=== PATIENT | female | born 1985 | race African-American/Black ===

== ENCOUNTER 2019-03-14 12:50 | Emergency (ER) | payer OTHER ==
[2019-03-14 13:14] VITALS: BP 110/71
[2019-03-14] MEDS ORDERED: NORMAL SALINE 1000 ML 1,000 ML IV ONE (15:06)
[2019-03-14] MEDS ORDERED: KETOROLAC TROMETHAMINE INJ/PF 30 MG/1 ML SDV IV ONE (15:06)
[2019-03-14] MEDS ORDERED: ONDANSETRON HCL INJ/PF 4 MG/2 ML SDV IV ONE ×2 (15:06→19:36)
--- NOTE | 2019-03-14 15:10 | ER Document Report ---
ED Medical Screen (RME) - General Chief Complaint: Abdominal Pain Stated Complaint: ABDOMINAL PAIN,VOMITING Time Seen by Provider: 03/14/19 14:57 Primary Care Provider: SAMUEL DALAL MD [Primary Care Provider] - Follow up as needed Mode of Arrival: Ambulatory Information source: Patient TRAVEL OUTSIDE OF THE U.S. IN LAST 30 DAYS: No - HPI Patient complains to provider of: ABDO PAIN Notes: 03/14/19 15:07 Patient here with complaints of upper abdominal pain. The patient has a history of necrotizing pancreatitis. She is been seen and evaluated for this in [place]. She recently moved here to be closer to family. Started having some increasing pain this morning. With nausea. No vomiting or fever. Exam No distress, nontoxic-appearing. Lungs clear and equal throughout. Upper abdominal tenderness to palpation. Tachycardia Plan CBC, CMP, urine, urine , lipase, saline lock, CT abdomen pelvis with IV contrast. Dose of Toradol, normal saline bolus and Zofran. An initial examination was made on the patient as part of the triage process, and it was determined a more comprehensive evaluation was necessary. Initial labs were ordered and patient was transferred to another provider in the ED who assumed care and finished evaluation and plan. - Related Data Allergies/Adverse Reactions: ceftriaxone [From Rocephin] Allergy (Verified 03/14/19 12:53) Past Medical History Renal/ Medical History: Denies: Hx Peritoneal Dialysis Past Surgical History: Reports: Hx Orthopedic Surgery - low back, nose - Immunizations Hx Diphtheria, Pertussis, Tetanus Vaccination: Yes - 2005 Physical Exam - Vital signs Vitals: Temp Pulse Resp BP Pulse Ox 98.3 F 122 H 18 110/71 98 03/14/19 13:11 03/14/19 13:11 03/14/19 13:11 03/14/19 13:11 03/14/19 13:11 Course - Vital Signs Vital signs: Temp Pulse Resp BP Pulse Ox 98.3 F 122 H 18 110/71 98 03/14/19 13:11 03/14/19 13:11 03/14/19 13:11 03/14/19 13:11 03/14/19 13:11 Doctor's Discharge - Discharge Referrals: SAMUEL DALAL MD [Primary Care Provider] - Follow up as needed
[2019-03-14 16:12] LABS: ABSOLUTE BASOPHILS # (AUTO) 0.1 10^3/uL (0.0-0.2); ABSOLUTE EOSINOPHILS # (AUTO) 0.3 10^3/uL (0.0-0.6); ABSOLUTE LYMPHOCYTES (AUTO) 3.9 10^3/uL (0.5-4.7); ABSOLUTE MONOCYTES (AUTO) 0.6 10^3/uL (0.1-1.4); ABSOLUTE NEUT (AUTO) 8.1 10^3/uL (1.7-8.2); BASOPHILS % (AUTO) 0.4 % (0-2); HEMATOCRIT 31.1 % (36.0-47.0); HEMOGLOBIN 9.7 g/dL (12.0-15.5); LYMPHOCYTES % (AUTO) 30.1 % (13-45); MEAN CORPUSCULAR HEMOGLOBIN 23.7 pg (27.0-33.4); MEAN CORPUSCULAR VOLUME 76 fl (80-97); MONOCYTES % (AUTO) 4.5 % (3-13); PLATELET COUNT 394 10^3/uL (150-450); RED BLOOD COUNT 4.07 10^6/uL (3.72-5.28); RED CELL DISTRIBUTION WIDTH 19.8 % (11.5-14.0); TOTAL CELLS COUNTED % (AUTO) 100 %; WHITE BLOOD COUNT 12.9 10^3/uL (4.0-10.5)
[2019-03-14 16:20] LABS: APPEARANCE,URINE CLOUDY; BILIRUBIN,URINE NEGATIVE (NEGATIVE); COLOR,URINE YELLOW; GLUCOSE, URINE NEGATIVE (NEGATIVE); KETONES,URINE NEGATIVE (NEGATIVE); LEUKOCYTE ESTERASE,URINE NEGATIVE (NEGATIVE); NITRITE,URINE NEGATIVE (NEGATIVE); PROTEIN,URINE NEGATIVE (NEGATIVE); URINE SPECIFIC GRAVITY 1.015; UROBILINOGEN,URINE NEGATIVE mg/dL (<2.0)
[2019-03-14 16:28] LABS: ALANINE AMINOTRANSFERASE 20 U/L (9-52); ALKALINE PHOSPHATASE 112 U/L (38-126); ANION GAP 9 (5-19); ASPARTATE AMINO TRANSFERASE 13 U/L (14-36); BILIRUBIN,DIRECT 0.2 mg/dL (0.0-0.4); BILIRUBIN,TOTAL 0.4 mg/dL (0.2-1.3); BLOOD UREA NITROGEN 10 mg/dL (7-20); CALCIUM 9.9 mg/dL (8.4-10.2); CARBON DIOXIDE 27 mmol/L (22-30); CHLORIDE 105 mmol/L (98-107); GLUCOSE 92 mg/dL (75-110); LIPASE 146.1 U/L (23-300); POTASSIUM 4.4 mmol/L (3.6-5.0); SODIUM 140.9 mmol/L (137-145); TOTAL PROTEIN 7.7 g/dL (6.3-8.2)
[2019-03-14] MEDS ORDERED: HYDROMORPHONE HCL INJ/PF 2 MG/ML AMPULE IV ONE ×2 (19:36→22:21)
--- NOTE | 2019-03-14 19:36 | RADIOLOGY REPORT (SQ) ---
EXAM DESCRIPTION: CT ABD/PELVIS WITH IV ONLY COMPLETED DATE/TIME: 03/14/2019 7:08 pm REASON FOR STUDY: HX OF NEC PANCREATITIS. UPPER ABDO PAIN COMPARISON: None. TECHNIQUE: CT scan of the abdomen and pelvis performed using helical scanning technique with dynamic intravenous contrast injection. No oral contrast. Images reviewed with lung, soft tissue, and bone windows. Reconstructed coronal and sagittal MPR images reviewed. Delayed images for evaluation of the urinary system also acquired. All images stored on PACS. All CT scanners at this facility use dose modulation, iterative reconstruction, and/or weight based d osing when appropriate to reduce radiation dose to as low as reasonably achievable (ALARA). [facility]: Dose Right [facility]: CareDose [facility]: Dose Right [facility]: Teradose 4D [facility]: eÓtica CONTRAST TYPE AND DOSE: contrast/concentration: Isovue 350.00 mg/ml; Total Contrast Delivered: 95.0 ml; Total Saline Delivered: 71.0 ml RENAL FUNCTION: BUN 9 creatinine 0.56 RADIATION DOSE: CT Rad equipment meets quality standard of care and radiation dose reduction techniq ues were employed. CTDIvol: 12.0 - 15.8 mGy. DLP: 1470 mGy-cm.. LIMITATIONS: None. FINDINGS: LOWER CHEST: No significant findings. No nodules or infiltrates. LIVER: Normal size. No masses. No dilated ducts. SPLEEN: Normal size. No focal lesions. PANCREAS: There is a well-circumscribed 23 x 35 mm fluid collection associated with the body/tail of the pancreas. This is seen best on image 23 series 3. No acute pancreatic or peripancreatic inflamm atory changes are appreciated. GALLBLADDER: No identified stones by CT criteria. No inflammatory changes to suggest cholecystitis. ADRENAL GLANDS: No significant masses or asymmetry. RIGHT KIDNEY AND URETER: No solid masses. No significant calcifications. No hydronephrosis or hyd roureter. LEFT KIDNEY AND URETER: No solid masses. No significant calcifications. No hydronephrosis or hydr oureter. AORTA AND VESSELS: No aneurysm. No dissection. Renal arteries, SMA, celiac without stenosis. RETROPERITONEUM: No retroperitoneal adenopathy, hemorrhage or masses. BOWEL AND PERITONEAL CAVITY: No masses or inflammatory changes. No free fluid or peritoneal masses. APPENDIX: Not identified. PELVIS: No mass. No free fluid. Normal bladder. ABDOMINAL WALL: No masses. No hernias. BONES: No significant or acute findings. OTHER: No other significant finding. IMPRESSION: There is a well-circumscribed fluid collection associated with the pancreas as described . Given history, likely pancreatic pseudocyst. There is no definite evidence of active pancreatitis . TECHNICAL DOCUMENTATION: JOB ID: [id number] Quality ID # [id number]: Final reports with documentation of one or more dose reduction techniques (e.g., Au tomated exposure control, adjustment of the mA and/or kV according to patient size, use of iterative reconstruction technique) 2010 [employer]- All Rights Reserved Reading location - IP/workstation name: [email or web address]
--- NOTE | 2019-03-14 19:36 | ER Document Report ---
ED General - General Chief Complaint: Abdominal Pain Stated Complaint: ABDOMINAL PAIN,VOMITING Time Seen by Provider: 03/14/19 14:57 Primary Care Provider: SAMUEL DALAL MD [Primary Care Provider] - Follow up as needed Mode of Arrival: Ambulatory Information source: Patient, [facility] Records Notes: 33-year-old female with a history of chronic necrotizing pancreatitis presents with complaint of epigastric abdominal pain, nausea, vomiting, diarrhea. Patient states that she had one episode of nausea and vomiting today and one nonbloody diarrhea. Patient states that she is due for surgery on March 26, 2019 in [place] with her anthropological linguist and general surgeon. She states at that time she will be getting a cholecystectomy and a drain placed into her pseudocy st. Patient has no physicians locally. She denies any fever, chills, headache, chest pain, shortness of breath, dysuria, hematuria. Patient states normally when she has a flareup she receives fluids, pain medication. She is on morphine chronically. TRAVEL OUTSIDE OF THE U.S. IN LAST 30 DAYS: No - HPI Onset: This morning Onset/Duration: Gradual, Persistent Quality of pain: Sharp Severity: Moderate Associated symptoms: Diarrhea, Nausea, Vomiting, Other - Epigastric abdominal pain. denies: Body/muscle aches, Chest pain, Chills, Fever, Shortness of breath Exacerbated by: Denies Relieved by: Denies Similar symptoms previously: Yes Recently seen / treated by doctor: Yes - Related Data Allergies/Adverse Reactions: ceftriaxone [From Rocephin] Allergy (Verified 03/14/19 12:53) Past Medical History - General Information source: Patient - Social History Smoking Status: Never Smoker Frequency of alcohol use: None Drug Abuse: None Lives with: Family Family History: Reviewed & Not Pertinent Patient has suicidal ideation: No Patient has homicidal ideation: No Renal/ Medical History: Denies: Hx Peritoneal Dialysis Past Surgical History: Reports: Hx Orthopedic Surgery - low back, nose - Immunizations Hx Diphtheria, Pertussis, Tetanus Vaccination: Yes - 2005 Review of Systems - Review of Systems Notes: REVIEW OF SYSTEMS: CONSTITUTIONAL : Denies fever, chills, or sweats. Denies recent illness. Denies weight loss, recent hospitalizations. EENT: Denies visual changes, eye pain. Denies sore throat, oral lesions, difficulty swallowing. CARDIOVASCULAR: Denies chest pain. Denies palpitations. Denies lower extremity edema. RESPIRATORY: Denies cough. Denies shortness of breath, wheezing. GASTROINTESTINAL: Denies abdominal distention. + nausea, vomiting, diarrhea. Denies blood in vomitus, stools, or per rectum. Denies black, tarry stools. Denies constipation. GENITOURINARY: Denies difficulty urinating, painful urination, frequency, blood in urine, or vaginal discharge. MUSCULOSKELETAL: Denies back or neck pain or stiffness. Denies joint pain or swelling. SKIN: Denies rash, lesions or sores. HEMATOLOGIC : Denies easy bruising or bleeding. LYMPHATIC: Denies swollen glands. NEUROLOGICAL: Denies confusion or altered mental status. Denies loss of consciousness. Denies dizziness or lightheadedness. Denies headache. Denies weakness or paralysis. Denies problems difficulty with ambulation, slurred speech. Denies sensory loss, numbness, or tingling. Denies seizures. PSYCHIATRIC: Denies anxiety or stress. Denies depression, suicidal ideation, or homicidal ideation. Denies visual or auditory hallucinations. Physical Exam - Vital signs Vitals: Temp Pulse Resp BP Pulse Ox 98.3 F 122 H 18 110/71 98 03/14/19 13:11 03/14/19 13:11 03/14/19 13:11 03/14/19 13:11 03/14/19 13:11 - Notes Notes: PHYSICAL EXAMINATION: GENERAL: Well-appearing, well-nourished and in no acute distress. HEAD: Atraumatic, normocephalic. EYES: Pupils equal round and reactive to light, extraocular movements intact, c onjunctiva are normal. ENT: Nares patent, oropharynx clear without exudates. Moist mucous membranes. NECK: Normal range of motion, supple without lymphadenopathy LUNGS: Breath sounds clear to auscultation bilaterally and equal. No wheezes rales or rhonchi. HEART: Regular rate and rhythm without murmurs ABDOMEN: Soft, tenderness with palpation to the epigastrium, nondistended abdomen. No guarding, no rebound. No masses appreciated. Female : deferred Musculoskeletal: Normal range of motion, no pitting or edema. No cyanosis. NEUROLOGICAL: Cranial nerves grossly intact. Normal speech, normal gait. Normal sensory, motor exams PSYCH: Normal mood, normal affect. SKIN: Warm, Dry, normal turgor, no rashes or lesions noted. Course - Re-evaluation Re-evalutation: 03/14/19 19:38 Laboratory 03/14/19 03/14/19 03/14/19 13:10 15:39 15:39 WBC 12.9 H RBC 4.07 Hgb 9.7 L Hct 31.1 L MCV 76 L MCH 23.7 L MCHC 31.0 L RDW 19.8 H Plt Count 394 Seg Neutrophils % 63.0 Lymphocytes % 30.1 Monocytes % 4.5 Eosinophils % 2.0 Basophils % 0.4 Absolute Neutrophils 8.1 Absolute Lymphocytes 3.9 Absolute Monocytes 0.6 Absolute Eosinophils 0.3 Absolute Basophils 0.1 Sodium 140.9 Potassium 4.4 Chloride 105 Carbon Dioxide 27 Anion Gap 9 BUN 10 Creatinine 0.58 Est GFR ( Amer) > 60 Est GFR (Non-Af Amer) > 60 Glucose 92 Calcium 9.9 Total Bilirubin 0.4 Direct Bilirubin 0.2 Neonat Total Bilirubin Not Reportable Neonat Direct Bilirubin Not Reportable Neonat Indirect Bili Not Reportable AST 13 L ALT 20 Alkaline Phosphatase 112 Total Protein 7.7 Albumin 4.0 Lipase 146.1 Urine Color YELLOW Urine Appearance CLOUDY Urine pH 6.0 Ur Specific [place] 1.015 Urine Protein NEGATIVE Urine Glucose (UA) NEGATIVE Urine Ketones NEGATIVE Urine Blood LARGE H Urine Nitrite NEGATIVE Urine Bilirubin NEGATIVE Urine Urobilinogen NEGATIVE Ur Leukocyte Esterase NEGATIVE Urine WBC (Auto) 9 Urine RBC (Auto) 5 Squamous Epi Cells Auto 12 Urine Mucus (Auto) FEW Urine Ascorbic Acid NEGATIVE Urine HCG, Qual NEGATIVE Temp Pulse Resp BP Pulse Ox 98.3 F 122 H 18 110/71 98 03/14/19 13:11 03/14/19 13:11 03/14/19 13:11 03/14/19 13:11 03/14/19 13:11 Abdomen/Pelvis CT 03/14/19 15:06 IMPRESSION: There is a well-circumscribed fluid collection associated with the pancreas as described. Given history, likely pancreatic pseudocyst. There is no definite evidence of active pancreatitis. 03/15/19 02:16 33-year-old female with a history of chronic necrotizing pancreatitis presents with complaint of epigastric abdominal pain, nausea, vomiting, diarrhea. Patient states that she had one episode of nausea and vomiting today and one nonbloody diarrhea. Patient states that she is due for surgery on March 26, 2019 in [place] with her anthropological linguist and general surgeon. She states at that time she will be getting a cholecystectomy and a drain placed into her pseudocyst. Patient has no physicians locally. She denies any fever, chills, headache, chest pain, shortness of breath, dysuria, hematuria. Patient states normally when she has a flareup she receives fluids, pain medication. She is on morphine chronically vital signs reviewed and patient is tachycardic but afebrile, normotensive. She does not appear toxic or dehydrated. She is had no episodes of vomiting during her ED course. CBC is without leukocytosis or anemia. CMP shows no electrolyte abnormalities lipase within normal limits. CT of the abdomen and pelvis show a pancreatic pseudocyst, no evidence of active pancreatitis. Patient did achieve pain relief after receiving Dilaudid, Valium. Her nausea has resolved. Patient is comfortable with discharge home as she does have a plan to go to [place] in 5 days for follow-up with her anthropological linguist, a cholecystectomy and a pancreatic drain placement. Patient is tolerating p.o. Patient was evaluated and treated as appropriate for the patient's presenting symptoms and complaint, with consideration of any critical or life threatening conditions that may be associated with their obtained history and exam as noted above. All results were discussed with patient and a friend who is at the bedside. Patient provided the opportunity to ask questions, and express concerns. Patient was educated on treatments based on their presumed diagnosis as noted above. At this time we will discharge the patient with return precautions and follow-up recommendations. Verbal discharge instructions given a the bedside. Medication warnings reviewed. Patient is in agreement with this plan and has verbalized understanding of return precautions. After careful consideration I feel that that patient can be safely discharged from the emergency department, they were advised to followup with a primary care physician in 2-3 days. Dictation on this chart was performed using voice recognition software and may result in unintended grammatical, spelling, syntax or errors. - Vital Signs Vital signs: Temp Pulse Resp BP Pulse Ox 98.3 F 122 H 18 110/71 98 03/14/19 13:11 03/14/19 13:11 03/14/19 13:11 03/14/19 13:11 03/14/19 13:11 - Laboratory Result Diagrams: 03/14/19 15:39 03/14/19 15:39 Laboratory results interpreted by me: 03/14/19 03/14/19 03/14/19 13:10 15:39 15:39 WBC 12.9 H Hgb 9.7 L Hct 31.1 L MCV 76 L MCH 23.7 L MCHC 31.0 L RDW 19.8 H AST 13 L Urine Blood LARGE H - Diagnostic Test Radiology reviewed: Image reviewed, Reports reviewed Discharge - Discharge Clinical Impression: Chronic abdominal pain, Nausea vomiting and diarrhea, Pancreatic pseudocyst Chronic pancreatitis Qualifiers: Pancreatitis type: unspecified pancreatitis type Qualified Code(s): K86.1 - Other chronic pancreatitis Condition: Good Disposition: HOME, SELF-CARE Instructions: Abdominal Pain ([facility]), Diarrhea, Nonspecific ([facility]), Gallbladder Disease ([facility]), Nausea or Vomiting, Nonspecific ([facility]), Pancreatitis ([facility]) Additional Instructions: Please follow-up with your surgeon and anthropological linguist as scheduled on March 26. Follow up with your [id number] hours for further care or return to the ED IMMEDIATELY if symptoms worsen or you have any concerns. If you cannot afford to follow up with your primary care physician a list of low cost clinics have been provided at the end of your discharge papers as well. Most prescribed medications have multiple side effects. The safest thing to do is when filling your prescription speak to your pharmacist regarding possible interactions with your normal home medications and over the counter medications such as Ibuprofen, Tylenol, Benadryl. If you experience any symptoms that cause you discomfort or concern you should discontinue the medication immediately and return to the emergency room or call your primary care physician. Prescriptions: Diazepam [Valium 5 mg Tablet] 5 mg PO QIDP PRN #15 tablet PRN Reason: Promethazine HCl [Phenergan 25 mg Tablet] 1 - 2 tab PO Q6H PRN #15 tablet PRN Reason: Referrals: SAMUEL DALAL MD [Primary Care Provider] - Follow up as needed
[2019-03-14] MEDS: RINGERS SOLUTION,LACTATED 1,000 ML IV PRN ×2 (20:10→21:21)
[2019-03-14] MEDS ORDERED: DIAZEPAM INJ 10 MG/2 ML DISP.SYRIN IV ONE (21:05)
== END 2019-03-15 00:16 | disposition home or self-care (01) ==
LOC: ER 12:50
DX: K86.1 Other chronic pancreatitis (principal); K86.3 Pseudocyst of pancreas; R10.9 Unspecified abdominal pain; G89.29 Other chronic pain; R11.2 Nausea with vomiting, unspecified; R19.7 Diarrhea, unspecified; R10.13 Epigastric pain
CPT/HCPCS: 96376; 99284; 96361; 96374; 96375; 36415; 83690; 85025; 81025; 80053; 81001; 74177; J3360; J1885; J1170; J2405; J7030; J7120; J1642

== ENCOUNTER 2019-04-03 19:42 | Emergency (ER) | payer OTHER ==
[2019-04-03] MEDS ORDERED: FENTANYL CITRATE INJ/PF 100 MCG/2 ML AMPUL IV ONE (20:46)
[2019-04-03] MEDS ORDERED: ONDANSETRON HCL INJ/PF 4 MG/2 ML SDV IV ONE (20:46)
[2019-04-03] MEDS ORDERED: NORMAL SALINE 1000 ML 1,000 ML IV ONE (20:46)
--- NOTE | 2019-04-03 20:49 | ER Document Report ---
ED Medical Screen (RME) - General Chief Complaint: Abdominal Pain Stated Complaint: ABDOMINAL PAIN,NAUSEA,VOMITING Time Seen by Provider: 04/03/19 20:42 Primary Care Provider: SAMUEL DALAL MD [Primary Care Provider] - Follow up as needed Notes: Patient is a 33-year-old female presents to the emergency department with generalized epigastric, right upper quadrant, left upper quadrant pain. Patient states she has an extensive history of pancreatitis. States she has had a pseudocyst with drainage. Patient states she is a port in the right side of her chest and only takes TPN. Typically does not eat anything by mouth. Patient states she does have establish care in [place] but is visiting her mother. States the pain in her abdomen got so severe which is why she presents to the emergency room. Patient is also complaining of generalized nausea, vomiting, diarrhea. Patient denies any fevers. ABDOMEN: Soft, generalized right upper, left upper, epigastric pain non- distended. Bowel sounds present in all 4 quadrants. I have greeted and performed a rapid initial assessment of this patient. A comprehensive ED assessment and evaluation of the patient, analysis of test results and completion of the medical decision making process will be conducted by additional ED providers. I have specifically instructed the patient or family members with the patient to immediately return to any nursing staff should anything change in the patient's condition or with their chief complaint. This medical record was dictated with voice recognizing software. There may be grammatical, syntax errors that are unintended. TRAVEL OUTSIDE OF THE [place]S. IN LAST 30 DAYS: No COUNTRY TRAVELED TO/FROM: [facility] - Related Data Allergies/Adverse Reactions: ceftriaxone [From Rocephin] Allergy (Verified 04/03/19 20:18) Past Medical History Renal/ Medical History: Denies: Hx Peritoneal Dialysis Past Surgical History: Reports: Hx Orthopedic Surgery - low back, nose - Immunizations Hx Diphtheria, Pertussis, Tetanus Vaccination: Yes - 2005 Doctor's Discharge - Discharge Referrals: SAMUEL DALAL MD [Primary Care Provider] - Follow up as needed
[2019-04-03] MEDS ORDERED: PROMETHAZINE HCL INJ 25 MG/1 ML VIAL ONE (21:24)
[2019-04-03 21:27] LABS: ABSOLUTE BASOPHILS # (AUTO) 0.1 10^3/uL (0.0-0.2); ABSOLUTE EOSINOPHILS # (AUTO) 0.2 10^3/uL (0.0-0.6); ABSOLUTE LYMPHOCYTES (AUTO) 3.1 10^3/uL (0.5-4.7); ABSOLUTE MONOCYTES (AUTO) 0.7 10^3/uL (0.1-1.4); ABSOLUTE NEUT (AUTO) 9.3 10^3/uL (1.7-8.2); BASOPHILS % (AUTO) 0.7 % (0-2); EOSINOPHILS % (AUTO) 1.6 % (0-6); HEMATOCRIT 30.7 % (36.0-47.0); HEMOGLOBIN 9.7 g/dL (12.0-15.5); LYMPHOCYTES % (AUTO) 22.9 % (13-45); MEAN CORPUSCULAR HEMOGLOBIN 23.8 pg (27.0-33.4); MEAN CORPUSCULAR HGB CONC 31.5 g/dL (32.0-36.0); MEAN CORPUSCULAR VOLUME 76 fl (80-97); MONOCYTES % (AUTO) 4.9 % (3-13); PLATELET COUNT 392 10^3/uL (150-450); RED BLOOD COUNT 4.06 10^6/uL (3.72-5.28); RED CELL DISTRIBUTION WIDTH 18.1 % (11.5-14.0); SEGMENTED NEUTROPHILS % (AUTO) 69.9 % (42-78); TOTAL CELLS COUNTED % (AUTO) 100 %; WHITE BLOOD COUNT 13.4 10^3/uL (4.0-10.5)
[2019-04-03 21:47] LABS: ALANINE AMINOTRANSFERASE 9 U/L (9-52); ALBUMIN 4.1 g/dL (3.5-5.0); ALKALINE PHOSPHATASE 104 U/L (38-126); ANION GAP 9 (5-19); ASPARTATE AMINO TRANSFERASE 12 U/L (14-36); BILIRUBIN,DIRECT 0.3 mg/dL (0.0-0.4); BILIRUBIN,TOTAL 0.4 mg/dL (0.2-1.3); BLOOD UREA NITROGEN 13 mg/dL (7-20); CALCIUM 9.7 mg/dL (8.4-10.2); CARBON DIOXIDE 24 mmol/L (22-30); CHLORIDE 107 mmol/L (98-107); GLUCOSE 113 mg/dL (75-110); LIPASE 235.2 U/L (23-300); POTASSIUM 4.3 mmol/L (3.6-5.0); SODIUM 139.5 mmol/L (137-145); TOTAL PROTEIN 7.6 g/dL (6.3-8.2)
[2019-04-03 22:18] LABS: APPEARANCE,URINE SLIGHTLY-CLOUDY; BILIRUBIN,URINE NEGATIVE (NEGATIVE); COLOR,URINE YELLOW; GLUCOSE, URINE NEGATIVE (NEGATIVE); KETONES,URINE NEGATIVE (NEGATIVE); LEUKOCYTE ESTERASE,URINE NEGATIVE (NEGATIVE); NITRITE,URINE NEGATIVE (NEGATIVE); PROTEIN,URINE NEGATIVE (NEGATIVE); URINE SPECIFIC GRAVITY 1.026; UROBILINOGEN,URINE NEGATIVE mg/dL (<2.0)
--- NOTE | 2019-04-03 22:22 | RADIOLOGY REPORT (SQ) ---
EXAM DESCRIPTION: US ABDOMEN DOPPLER LIMITED COMPLETED DATE/TME: 04/03/2019 20:45 CLINICAL HISTORY: 33 years, Female, RUQ pain epigastric pain. The History of pancreatic pseudocyst. COMPARISON: None. TECHNIQUE: Fang scale sonography of the right upper quadrant abdomen. LIMITATIONS: None. FINDINGS: LIVER: Within normal limits morphology and echogenicity measuring 17 cm. GALLBLADDER: Positive sonographic Batres sign. Innumerable foci of small echogenicity within the gallbladder lumen with posterior acoustic shadowing compatible with cholelithiasis. Equivocal findings for gallbladder wall thickening, with otherwise overall appearing small gallbladder, may be secondary to gallbladder contraction. Please correlate with n.P.o. status. No clear pericholecystic fluid. Gallbladder wall thickening measures up to 3 mm. BILIARY TRACT: No significant abnormalities noted. The common bile duct measures 2 mm. PANCREAS: Limited evaluation secondary to partial obscuration by overlying bowel gas otherwise within normal limits. Cystic type structure is identified at the level of the body of the pancreas, may be compatible with the patient's history of pseudocyst, similar in appearance to CT examination measuring 2.6 x 3.0 x 4.2 cm. KIDNEY: The RIGHT kidney is within normal limits of morphology and echogenicity measuring 9.2 cm in craniocaudal dimension. IMPRESSION: 1. Cholelithiasis and overall appearing small gallbladder, may be secondary to contracted gallbladder. Please correlate with n.p.o. status. 2. Borderline gallbladder wall thickening, equivocal in the setting of contracted gallbladder. No clear pericholecystic fluid, however if there remains clinical concern for acute cholecystitis, follow-up evaluation with nuclear medicine scintigraphy HIDA scan is recommended. 3. Pancreatic pseudocyst. copyright 2010 [employer]- All Rights Reserved
[2019-04-03] MEDS ORDERED: MORPHINE SULFATE 10 MG/ML INJ IV PRN (23:37)
--- NOTE | 2019-04-03 23:48 | ER Document Report ---
ED General - General Chief Complaint: Abdominal Pain Stated Complaint: ABDOMINAL PAIN,NAUSEA,VOMITING Time Seen by Provider: 04/03/19 20:42 Primary Care Provider: SAMUEL DALAL MD [Primary Care Provider] - Follow up as needed Notes: Patient is a 33-year-old female with a past medical history of recurrent pancreatitis likely secondary to gallstones, history of pancreatic pseudocyst who presents with 48 hours of progressively worsening upper abdominal pain with associated nausea, vomiting and a fever to 101 F earlier today. Patient states that she is supposed to be going to [place] at the end [facility] pseud[facility] as well as removal of her gallbladder. She states however she came to the emergency department today at the behest of her home nurse who was concerned about fever and rising white blood cell count on labs. The patient describes the pain in her upper abdomen is being a throbbing, aching, constant discomfort. Worsened by any attempt to eating or d rinking. Has used oral morphine for pain improved control but does not have any of this available to her currently at home. Does not have a local primary care physician. TRAVEL OUTSIDE OF THE [place] IN LAST 30 DAYS: No COUNTRY TRAVELED TO/FROM: [facility] - Related Data Allergies/Adverse Reactions: ceftriaxone [From Rocephin] Allergy (Verified 04/03/19 20:18) Past Medical History - General Information source: Patient - Social History Smoking Status: Never Smoker Frequency of alcohol use: None Drug Abuse: None Lives with: Family Family History: Reviewed & Not Pertinent Patient has suicidal ideation: No Patient has homicidal ideation: No Renal/ Medical History: Denies: Hx Peritoneal Dialysis Past Surgical History: Reports: Hx Abdominal Surgery - pseudocyst drain, Hx Orthopedic Surgery - low back, nose, Hx Vascular Surgery - zayas placement - Immunizations Hx Diphtheria, Pertussis, Tetanus Vaccination: Yes - 2005 Review of Systems - Review of Systems Notes: Constitutional: Negative for fever. HENT: Negative for sore throat. Eyes: Negative for visual changes. Cardiovascular: Negative for chest pain. Respiratory: Negative for shortness of breath. Gastrointestinal: Positive for abdominal pain and vomiting Genitourinary: Negative for dysuria. Musculoskeletal: Negative for back pain. Skin: Negative for rash. Neurological: Negative for headaches, weakness or numbness. 10 point ROS negative except as marked above and in HPI. Physical Exam - Vital signs Vitals: Temp Pulse Resp BP Pulse Ox 97.9 F 117 H 16 120/90 H 98 04/03/19 20:21 04/03/19 20:21 04/03/19 20:21 04/03/19 20:21 04/03/19 20:21 Interpretation: Tachycardic Notes: PHYSICAL EXAMINATION: GENERAL: Appears moderately unwell but in no acute distress HEAD: Atraumatic, normocephalic. EYES: Pupils equal round and reactive to light, extraocular movements intact, sclera anicteric, conjunctiva are normal. ENT: nares patent, oropharynx clear without exudates. Moderately dry mucous membranes. NECK: Normal range of motion, supple without lymphadenopathy LUNGS: Breath sounds clear to auscultation bilaterally and equal. No wheezes rales or rhonchi. HEART: Regular tachycardia without murmurs ABDOMEN: Soft, focal tenderness to the epigastrium, right upper quadrant and left upper quadrant without rebound or guarding. EXTREMITIES: Normal range of motion, no pitting or edema. No cyanosis. NEUROLOGICAL: No focal neurological deficits. Moves all extremities spont aneously and on command. PSYCH: Normal mood, normal affect. SKIN: Warm, Dry, normal turgor, no rashes or lesions noted. Course - Re-evaluation Re-evalutation: 04/03/19 23:46 Patient has a known history of pancreatic pseudocysts history of neck testing pancreatitis, presents with ongoing upper abdominal pain now with nausea and v omiting and unable to tolerate p.o. intake for the past 48 hours. Patient also reports that she had a fever to 101 F yesterday. She has a leukocytosis today at 13.8, labs otherwise unremarkable. On exam patient has focal tenderness to right upper quadrant, epigastrium and upper left upper quadrant. No rebound or guarding. She is noted to be tachycardic initial rates in the 120s. She is taking TPN for nutrition, states she has not ate or drink anything over 2 days. Was seen here at the end of February under similar circumstances and discharged home. States that she is scheduled to follow-up in [place] in late March for cholecystectomy and pseudocyst drainage but came to the emergency department today at the behest of her home health nurse who was concerned about her rising white count, fever and increasing abdominal pain. The right upper quadrant ultrasound does demonstrate a pancreatic pseudocyst as well as gallstones with a contracted gallbladder and gallbladder wall thickening. I have consulted the general surgeon Dr. Thacker to formally evaluate this patient. 04/04/19 02:54 Dr. Thacker has formally evaluate the patient and also consulted with Dr. Kassie FOFANA java application developer. They have agreed that the patient does require endoscopic drainage of the pancreatic pseudocyst but we do not have the come to perform this procedure at this facility. Patient will subsequently be transferred to [facility]. I have discussed with Dr. Bello who is excepted the patient. CT scan without any acute findings beyond known pancreatic pseudocyst. Patient comfortable with plan. - Vital Signs Vital signs: Temp Pulse Resp BP Pulse Ox 97.9 F 117 H 18 127/88 H 100 04/03/19 20:21 04/03/19 20:21 04/03/19 22:00 04/04/19 01:41 04/04/19 01:41 - Laboratory Result Diagrams: 04/03/19 21:00 04/03/19 21:00 Laboratory results interpreted by me: 04/03/19 04/03/19 04/03/19 21:00 21:00 21:50 WBC 13.4 H Hgb 9.7 L Hct 30.7 L MCV 76 L MCH 23.8 L MCHC 31.5 L RDW 18.1 H Absolute Neutrophils 9.3 H Creatinine 0.51 L Glucose 113 H AST 12 L Urine Blood SMALL H Urine Ascorbic Acid 40 H - Diagnostic Test Radiology reviewed: Reports reviewed Discharge - Discharge Clinical Impression: Pancreatic pseudocyst Cholelithiasis Qualifiers: Cholelithiasis location: gallbladder Cholecystitis presence: without cholecystitis Biliary obstruction: without biliary obstruction Qualified Code(s): K80.20 - Calculus of gallbladder without cholecystitis without obst ruction Nausea and vomiting Qualifiers: Vomiting type: unspecified Vomiting Intractability: non-intractable Qualified Code(s): R11.2 - Nausea with vomiting, unspecified Condition: Fair Disposition: [facility] Referrals: SAMUEL DALAL MD [Primary Care Provider] - Follow up as needed
[2019-04-04] MEDS: MORPHINE SULFATE 10 MG/ML INJ IV PRN ×6 (00:07→21:37)
--- NOTE | 2019-04-04 00:45 | PDOC CONSULTATION ---
Consultation Consult Date: 04/04/19 Provider Consulted: PURVI COHEN Consult reason:: abdominal pain, pancreatic pseudocyst, cholelithiasis History of Present Illness Admission Date/PCP: SAMUEL DALAL MD History of Present Illness: LEAH BRAUN is a 33 year old female Presents with worsening upper abdominal pain and a fever of 101 In July 2018 patient who lives in [place] presented there to the [facility] with severe epigastric abdominal pain diagnosis of pancreatitis was made. She has cholelithiasis and with no evidence of a EtOH history carries a diagnosis of gallstone induced pancreatitis. 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 Plans were being made for a laparoscopic cholecystectomy however she developed a pancreatic pseudocyst. Because of this it caused her to have increasing early satiety and upper abdominal pain with eating so she was started on TPN via a Zayas catheter that was placed in her right subclavian vein. She currently has an appointment at the [facility] in [place] for a laparoscopic cholecystectomy and pseudocyst drainage to be done endoscopically. She is visiting her mother here in [place] when she has developed more upper abdominal pain and now with a fever of 101. She presented to the emergency room with those complaints she denies any nausea or vomiting she denies any diarrhea she denies any history of jaundice she states she has not eaten any significant solid food for a number of weeks and maintains mostly on the TPN and states that she eats very lightly. Past Medical History Cardiac Medical History: Denies: None, Atrial Fibrillation, Congestive Heart Failure, Coronary Artery Disease, DVT, Myocardial Infarction, Hyperlipidema, Hypertension, Peripheral Vascular Disease, Pulmonary Embolism, Heart Murmur, Other Pulmonary Medical History: Denies: None, Asthma, Bronchitis, Chronic Obstructive Pulmonary Disease (COPD), Intubation, Pneumonia, Respiratory Failure, Sleep Apnea, Tuberculosis, Other EENT Medical History: Denies: None, Cataracts, Eyes, Ears, Nose, Throat, Other Neurological Medical History: Denies: None, Hemorrhagic CVA, Ischemic CVA, Migraine, Multiple Sclerosis, Seizures, Other Endocrine Medical History: Denies: None, Diabetes Mellitus Type 1, Diabetes Mellitus Type 2, Gestational Diabetes, Hyperthyroidism, Hypothyroidism, Obesity, Other Renal/ Medical History: Denies: None, Chronic Kidney Disease, End Stage Renal Disease, Nephrolithiasis, Other Malignancy Medical History: Denies: None, Bone Cancer, Brain Cancer, Breast Cancer, Cervical Cancer, Colorectal Cancer, Leukemia, Liver Cancer, Lung Cancer, Lymphoma, Ovarian Cancer, Pancreatic Cancer, Renal (Kidney) Cancer, Skin Cancer, Other Musculoskeltal Medical History: Denies: None, Arthritis, Fibromyalgia, Gout, Other Psychiatric Medical History: Denies: None, Alcohol Dependency, Attention Deficit Hyperactivity Disorder, B ipolar Disorder, Dementia, Depression, General Anxiety Disorder, Personality Disorder, Post Traumatic Stress Disorder, Schizoaffective Disorder, Substance Abuse, Tobacco Dependency, Other Hematology: Denies: None, Anemia, Hemophilia, Sickle Cell Disease, Bleeding Tendencies, Heparin Induced Thrombocytopenia, Neutropenia, Other Infectious Medical History: Denies: None, Clostridium Difficile, Hepatitis B, Hepatitis C, HIV, Methicillin-Resistant Staph Aureus, Vancomycin-Resistant Enterococci, Other Past Surgical History Past Surgical History: Reports: Orthopedic Surgery - low back, nose, Vascular Surgery - zayas placement Social History Smoking Status: Never Smoker Family History Family History: Reviewed & Not Pertinent Parental Family History Reviewed: No Children Family History Reviewed: NA Sibling(s) Family History Reviewed.: NA Medication/Allergy Home Medications: Cyclobenzaprine HCl [Flexeril 10 Mg Tablet] 10 mg PO TID 10/31/11 Meloxicam [Mobic 7.5 Mg Tablet] 7.5 mg PO BID 10/31/11 Diazepam [Valium 5 mg Tablet] 5 mg PO QIDP PRN #15 tablet 03/14/19 Promethazine HCl [Phenergan 25 mg Tablet] 1 - 2 tab PO Q6H PRN #15 tablet 03/14/19 Allergies/Adverse Reactions: ceftriaxone [From Rocephin] Allergy (Verified 04/03/19 20:18) Physical Exam Vital Signs: Temp Pulse Resp BP Pulse Ox 97.9 F 117 H 16 120/90 H 98 04/03/19 20:21 04/03/19 20:21 04/03/19 20:21 04/03/19 20:21 04/03/19 20:21 General appearance: PRESENT: mild distress Head exam: PRESENT: normocephalic Eye exam: PRESENT: EOMI Ear exam: PRESENT: normal external ear exam Mouth exam: PRESENT: moist Neck exam: PRESENT: full ROM Respiratory exam: PRESENT: clear to auscultation musa Cardiovascular exam: PRESENT: RRR Pulses: PRESENT: normal radial pulses, normal femoral pulses, +2 pedal pulses bilateral Vascular exam: PRESENT: other - She has a Zayas catheter dual-lumen placed in the right subclavian vein slight tenderness over the Zayas catheter insertion site GI/Abdominal exam: PRESENT: other - Her abdomen is soft she has tenderness in the left upper quadrant and epigastrium and minimal tenderness in the right upper quadrant Rectal exam: PRESENT: deferred Extremities exam: PRESENT: full ROM Musculoskeletal exam: PRESENT: full ROM Neurological exam: PRESENT: alert, awake, oriented to person, oriented to place Psychiatric exam: PRESENT: appropriate affect Skin exam: PRESENT: dry Results Laboratory Results: 04/03/19 21:00 04/03/19 21:00 04/03/19 04/03/19 04/03/19 21:00 21:00 21:50 WBC 13.4 H RBC 4.06 Hgb 9.7 L Hct 30.7 L MCV 76 L MCH 23.8 L MCHC 31.5 L RDW 18.1 H Plt Count 392 Seg Neutrophils % 69.9 Lymphocytes % 22.9 Monocytes % 4.9 Eosinophils % 1.6 Basophils % 0.7 Absolute Neutrophils 9.3 H Absolute Lymphocytes 3.1 Absolute Monocytes 0.7 Absolute Eosinophils 0.2 Absolute Basophils 0.1 Sodium 139.5 Potassium 4.3 Chloride 107 Carbon Dioxide 24 Anion Gap 9 BUN 13 Creatinine 0.51 L Est GFR ( Amer) > 60 Est GFR (Non-Af Amer) > 60 Glucose 113 H Calcium 9.7 Total Bilirubin 0.4 AST 12 L ALT 9 Alkaline Phosphatase 104 Total Protein 7.6 Albumin 4.1 Lipase 235.2 Urine Color YELLOW Urine Appearance SLIGHTLY-CLOUDY Urine pH 5.0 Ur Specific [place] 1.026 Urine Protein NEGATIVE Urine Glucose (UA) NEGATIVE Urine Ketones NEGATIVE Urine Blood SMALL H Urine Nitrite NEGATIVE Ur Leukocyte Esterase NEGATIVE Urine WBC (Auto) 2 Urine RBC (Auto) 7 Impressions: Abdomen Ultrasound 04/03/19 20:45 IMPRESSION: 1. Cholelithiasis and overall appearing small gallbladder, may be secondary to contracted gallbladder. Please correlate with n.p.o. status. 2. Borderline gallbladder wall thickening, equivocal in the setting of contracted gallbladder. No clear pericholecystic fluid, however if there remains clinical concern for acute cholecystitis, follow-up evaluation with nuclear medicine scintigraphy HIDA scan is recommended. 3. Pancreatic pseudocyst. copyright 2010 [employer]- All Rights Reserved Assessment & Plan - Plan Summary Plan Summary: Impression is a 33-year-old female with a known pancreatic pseudocyst and cholelithiasis currently on home TPN visiting from [place]. Patient has an appointment at the end of this month for a laparoscopic ch olecystectomy and endoscopic pseudocyst drainage. Presents now with unrelenting upper abdominal pain and wishes to have the procedure done here in [place] if it will treat her pain more expediti ously. She also has a new onset of temperature episode of 101 and was sent to the emergency room because that by her home health nurse. Surgery was consulted to possibly deal with the cholelithiasis thinking that this may be the etiology of the pain. However I feel that the pain is really secondary to the pseudocyst enlarging. Addition of that she does have a fever which may be secondary to either recurrent pancreatitis or an infected Zayas catheter. I discussed the case with GI on-call who states that they do not have the equipment for endoscopic cyst gastrostomy in addition in surgery we do not have the equipment for a laparoscopic cyst gastrostomy. Therefore it was suggested by the wheelman on-call that the patient be transferred to [facility] or they have the capability for endoscopic cyst gastrostomy We will repeat a CT scan here to evaluate the pseudocyst prior to transfer to an outside Medical Center for higher level of care
--- NOTE | 2019-04-04 01:08 | RADIOLOGY REPORT (SQ) ---
CT abdomen and pelvis with contrast on 04/04/2019 at 12:21 AM CLINICAL INDICATION: Upper abdominal pain, chronic pseudocyst TECHNIQUE: Multiple axial images are obtained throughout the abdomen and pelvis following the administration of IV contrast, 75 mL of Omnipaque 350 contrast was administered intravenously without complication. This exam was performed according to our departmental dose-optimization program, which includes automated exposure control, adjustment of the mA and/or kV according to patient size and/or use of iterative reconstruction technique. Total DLP is 1258.63 mGy*cm. COMPARISON: 03/14/2019 FINDINGS: Abdomen: The lung bases are clear. Gallstone is noted in the gallbladder. There has been some increase in size of pseudocyst along the distal pancreatic body and tail now measuring 4.3 x 2.6 cm where this did measure 3.5 x 2.3 cm. There is stable area of subcutaneous apparent scarring in the left upper quadrant anterior abdominal wall subcutaneous tissues. Deep to this is a linear radiopaque object that is apparently within the gastric wall in the anterior upper abdomen. This was also present previously. Please correlate with surgical history. There is pancreatic ductal dilatation of the distal pancreatic duct likely related to prior pancreatitis. There is some subtle fat stranding around the pancreatic tail raising a question of mild acute pancreatitis. Solid abdominal organs are otherwise unremarkable. There is no abdominal adenopathy. There is no free fluid or free air within the abdomen. The abdominal portion of the GI tract is otherwise unremarkable. There is a small umbilical hernia containing only fat. Pelvis: Uterus is retroverted/retroflexed. Small amount of free fluid in the pelvis is likely physiologic. There is no pelvic adenopathy. Pelvic portion of the GI tract is unremarkable. Degenerative changes are noted in the lower lumbar spine. IMPRESSION: 1. Mild increase in size of pancreatic pseudocyst. There is some subtle fat stranding adjacent to the pancreatic tail raising a question of mild acute pancreatitis, please correlate with laboratory values. 2. Cholelithiasis. 3. Linear radiopaque object along the anterior gastric wall of unknown definite etiology. Please correlate with surgical history as to whether or not this is supposed to be in this location or not.
[2019-04-04] MEDS ORDERED: METOCLOPRAMIDE HCL INJ/PF 10 MG/2 ML SDV IV ONE (03:01)
[2019-04-04] MEDS ORDERED: RINGERS SOLUTION,LACTATED 1,000 ML IV ONE (03:01)
--- NOTE | 2019-04-04 08:16 | PDOC CONSULTATION ---
Consultation Consult Date: 04/04/19 Provider Consulted: TANNA MONIQUE Consult reason:: Abd pain with chronic pancreatic pseudocyst History of Present Illness Admission Date/PCP: SAMUEL DALAL MD History of Present Illness: LEAH BRAUN is a 33 year old female I was called overnight on this patient presented to the ED with abdominal pain has a history of previous pancreatitis and noted to have a pseudocyst apparently was set up to have it drained with EUS thru the stomach wall in [place] patient also noted to have cholelithiasis and was schedule for cholecystectomy at some point also There is no availability of doing EUS at this facility patient does need to be transferred , [facility] can likely perform drainage patient in process of transfer, conference with surgeon and ED physician overnight with regards to plans Past Medical History Cardiac Medical History: Reports: None, Atrial Fibrillation Pulmonary Medical History: Reports: None Denies: Pneumonia, Sleep Apnea EENT Medical History: Reports: None Neurological Medical History: Denies: Migraine, Seizures Endocrine Medical History: Reports: None Renal/ Medical History: Denies: Chronic Kidney Disease Malignancy Medical History: Denies: Breast Cancer, Pancreatic Cancer GI Medical History: Reports: None Denies: Peptic Ulcer Disease, Ulcerative Colitis Musculoskeltal Medical History: Reports: None Skin Medical History: Reports: None Hematology: Denies: Hemophilia Past Surgical History Past Surgical History: Reports: Orthopedic Surgery - low back, nose, Vascular Surgery - zayas placement Social History Lives with: Family Smoking Status: Never Smoker Family History Family History: Reviewed & Not Pertinent Parental Family History Reviewed: Yes Children Family History Reviewed: Unknown Sibling(s) Family History Reviewed.: Unknown Medication/Allergy Home Medications: Cyclobenzaprine HCl [Flexeril 10 Mg Tablet] 10 mg PO TID 10/31/11 Meloxicam [Mobic 7.5 Mg Tablet] 7.5 mg PO BID 10/31/11 Diazepam [Valium 5 mg Tablet] 5 mg PO QIDP PRN #15 tablet 03/14/19 Promethazine HCl [Phenergan 25 mg Tablet] 1 - 2 tab PO Q6H PRN #15 tablet 03/14/19 Allergies/Adverse Reactions: ceftriaxone [From Rocephin] Allergy (Verified 04/03/19 20:18) Review of Systems Constitutional: ABSENT: headache(s), night sweats Eyes: ABSENT: visual disturbances Ears: ABSENT: hearing changes Nose, Mouth, and Throat: ABSENT: mouth pain, sore throat Cardiovascular: ABSENT: edema, palpitations Respiratory: ABSENT: dyspnea, hemoptysis Gastrointestinal: PRESENT: nausea. ABSENT: constipation, hematochezia Genitourinary: ABSENT: dysuria, hematuria Musculoskeletal: ABSENT: deformity, joint swelling Integumentary: ABSENT: lesions, pruritus Neurological: ABSENT: syncope, tingling, tremor(s), vertigo Endocrine: ABSENT: polydipsia, polyphagia, polyuria Hematologic/Lymphatic: ABSENT: easy bruising Physical Exam Vital Signs: Temp Pulse Resp BP Pulse Ox 98.2 F 117 H 18 127/109 H 100 04/04/19 06:13 04/03/19 20:21 04/03/19 22:00 04/04/19 07:02 04/04/19 07:02 Intake & Output 04/03/19 04/04/19 04/05/19 06:59 06:59 06:59 Intake Total 1000 Balance 1000 Weight 84.822 kg General appearance: PRESENT: mild distress, well-developed, well-nourished Head exam: PRESENT: atraumatic, normocephalic Eye exam: PRESENT: EOMI, PERRLA. ABSENT: scleral icterus Mouth exam: PRESENT: moist, neck supple Throat exam: ABSENT: tonsillar exudate, tonsillogmegaly Neck exam: ABSENT: meningismus, tenderness, thyromegaly Respiratory exam: PRESENT: symmetrical, unlabored. ABSENT: tachypnea, wheezes GI/Abdominal exam: ABSENT: ascites, Batres's sign, rebound Extremities exam: ABSENT: joint swelling Neurological exam: PRESENT: oriented to time, oriented to situation, CN II-XII grossly intact Focused psych exam: ABSENT: restlessness Skin exam: PRESENT: normal color. ABSENT: mottled, pallor, urticaria, vesicles Results Laboratory Results: 04/03/19 21:00 04/03/19 21:00 04/03/19 04/03/19 04/03/19 21:00 21:00 21:50 WBC 13.4 H RBC 4.06 Hgb 9.7 L Hct 30.7 L MCV 76 L MCH 23.8 L MCHC 31.5 L RDW 18.1 H Plt Count 392 Seg Neutrophils % 69.9 Lymphocytes % 22.9 Monocytes % 4.9 Eosinophils % 1.6 Basophils % 0.7 Absolute Neutrophils 9.3 H Absolute Lymphocytes 3.1 Absolute Monocytes 0.7 Absolute Eosinophils 0.2 Absolute Basophils 0.1 Sodium 139.5 Potassium 4.3 Chloride 107 Carbon Dioxide 24 Anion Gap 9 BUN 13 Creatinine 0.51 L Est GFR ( Amer) > 60 Est GFR (Non-Af Amer) > 60 Glucose 113 H Calcium 9.7 Total Bilirubin 0.4 AST 12 L ALT 9 Alkaline Phosphatase 104 Total Protein 7.6 Albumin 4.1 Lipase 235.2 Urine Color YELLOW Urine Appearance SLIGHTLY-CLOUDY Urine pH 5.0 Ur Specific [place] 1.026 Urine Protein NEGATIVE Urine Glucose (UA) NEGATIVE Urine Ketones NEGATIVE Urine Blood SMALL H Urine Nitrite NEGATIVE Ur Leukocyte Esterase NEGATIVE Urine WBC (Auto) 2 Urine RBC (Auto) 7 Impressions: Abdomen Ultrasound 04/03/19 20:45 IMPRESSION: 1. Cholelithiasis and overall appearing small gallbladder, may be secondary to contracted gallbladder. Please correlate with n.p.o. status. 2. Borderline gallbladder wall thickening, equivocal in the setting of contracted gallbladder. No clear pericholecystic fluid, however if there remains clinical concern for acute cholecystitis, follow-up evaluation with nuclear medicine scintigraphy HIDA scan is recommended. 3. Pancreatic pseudocyst. copyright 2010 [employer]- All Rights Reserved Abdomen/Pelvis CT 04/03/19 23:43 IMPRESSION: 1. Mild increase in size of pancreatic pseudocyst. There is some subtle fat stranding adjacent to the pancreatic tail raising a question of mild acute pancreatitis, please correlate with laboratory values. 2. Cholelithiasis. 3. Linear radiopaque object along the anterior gastric wall of unknown definite etiology. Please correlate with surgical history as to whether or not this is supposed to be in this location or not. Assessment & Plan - Diagnosis (1) Cholelithiasis Qualifiers: Cholelithiasis location: gallbladder Cholecystitis presence: without cholecystitis Biliary obstruction: without biliary obstruction Qualified Code(s): K80.20 - Calculus of gallbladder without cholecystitis without obstruction Plan: surgery has seen patient and agrees that at some point , gallbladder needs to be removed except that psuedocyst needs drainage first (2) Nausea and vomiting Qualifiers: Vomiting type: unspecified Vomiting Intractability: non-intractable Qualified Code(s): R11.2 - Nausea with vomiting, unspecified Plan: likely due to presence of pseudocyst (3) Pancreatic pseudocyst Plan: will need EUS drainage transfer to facility where that is able to be done [facility] transfer in progress pain control antibiotic coverage anti- emetics and start on PPI - Time Time Spent: 50 to 70 Minutes
--- NOTE | 2019-04-04 10:59 | ER Document Report ---
Doctor's Note Notes: 04/04/19 10:57 Rounds: Chart reviewed and patient interviewed. Patient has a pancreatic pseudocyst and is awaiting transfer to [facility] where she can have endoscopic drainage of the pseudocyst, which cannot be done at this facility. Patient is without significant complaints this morning. Vital signs are all stable. [place]ph[place] nt appears to be stable for transfer or discharge. Austin Carolina MD
[2019-04-04] MEDS ORDERED: RINGERS SOLUTION,LACTATED 1,000 ML IV PRN (15:34)
[2019-04-05] MEDS: MORPHINE SULFATE 10 MG/ML INJ IV PRN ×4 (02:55→20:59)
--- NOTE | 2019-04-05 09:55 | ER Document Report ---
Doctor's Note Notes: 04/05/19 09:52 Rounds: Chart and labs reviewed. Patient interviewed. We are still awaiting a bed for this patient at [facility]. I just spoke with receiving doctor, , hospitalist at [facility] and they believe they will get a bed for this patient this afternoon. At her suggestion, I am holding the patient's TPN going to give a dose of Zosyn, and have the patient on a clear liquid diet. Hopefully, we will find that the patient is going to get a bed today for transfer. Also had discussions with Dr. Wilson regarding the patient. Patient appears to be medically stable for transfer or discharge. Austin Carolina MD
[2019-04-05 10:47] LABS: ABSOLUTE BASOPHILS # (AUTO) 0.1 10^3/uL (0.0-0.2); ABSOLUTE EOSINOPHILS # (AUTO) 0.4 10^3/uL (0.0-0.6); ABSOLUTE LYMPHOCYTES (AUTO) 1.8 10^3/uL (0.5-4.7); ABSOLUTE MONOCYTES (AUTO) 0.5 10^3/uL (0.1-1.4); ABSOLUTE NEUT (AUTO) 6.4 10^3/uL (1.7-8.2); BASOPHILS % (AUTO) 0.7 % (0-2); EOSINOPHILS % (AUTO) 3.9 % (0-6); HEMATOCRIT 28.6 % (36.0-47.0); HEMOGLOBIN 9.1 g/dL (12.0-15.5); LYMPHOCYTES % (AUTO) 20.3 % (13-45); MEAN CORPUSCULAR HEMOGLOBIN 24.3 pg (27.0-33.4); MEAN CORPUSCULAR VOLUME 76 fl (80-97); PLATELET COUNT 337 10^3/uL (150-450); RED BLOOD COUNT 3.76 10^6/uL (3.72-5.28); RED CELL DISTRIBUTION WIDTH 17.4 % (11.5-14.0); SEGMENTED NEUTROPHILS % (AUTO) 70.1 % (42-78); TOTAL CELLS COUNTED % (AUTO) 100 %; WHITE BLOOD COUNT 9.1 10^3/uL (4.0-10.5)
[2019-04-05] MEDS ORDERED: PIPERACILLIN/TAZOBACTAM 3.375 GM VIAL IV ONE (10:51)
[2019-04-05 11:06] LABS: ALANINE AMINOTRANSFERASE 14 U/L (9-52); ALBUMIN 3.5 g/dL (3.5-5.0); ALKALINE PHOSPHATASE 90 U/L (38-126); ANION GAP 7 (5-19); ASPARTATE AMINO TRANSFERASE 11 U/L (14-36); BILIRUBIN,DIRECT 0.3 mg/dL (0.0-0.4); BILIRUBIN,TOTAL 0.4 mg/dL (0.2-1.3); BLOOD UREA NITROGEN 15 mg/dL (7-20); CALCIUM 9.3 mg/dL (8.4-10.2); CARBON DIOXIDE 27 mmol/L (22-30); CHLORIDE 103 mmol/L (98-107); GLUCOSE 132 mg/dL (75-110); LIPASE 88.8 U/L (23-300); POTASSIUM 4.5 mmol/L (3.6-5.0); TOTAL PROTEIN 6.7 g/dL (6.3-8.2)
[2019-04-05 19:10] VITALS: BP 120/79
== END 2019-04-05 19:10 | disposition short-term general hospital (02) ==
LOC: ER 19:42
DX: K86.3 Pseudocyst of pancreas (principal); K80.20 Calculus of gallbladder without cholecystitis without obstruction; R10.13 Epigastric pain; R11.2 Nausea with vomiting, unspecified; R19.7 Diarrhea, unspecified; R50.9 Fever, unspecified
CPT/HCPCS: 36591; 99285; 96361; 96375; 96365; 36415; 82962; 83690; 85025; 81025; 80053; 81001; 76705; 93976; 74177; J3010; J2765; J2270 ×2; J2405; J7030; J7120; J1642; J2543

== ENCOUNTER 2019-04-23 22:05 | Emergency (ER) | payer OTHER ==
[2019-04-24 00:33] LABS: AMORPHOUS SEDIMENT,URINE TRACE /HPF; APPEARANCE,URINE CLOUDY; BILIRUBIN,URINE NEGATIVE (NEGATIVE); COLOR,URINE YELLOW; GLUCOSE, URINE NEGATIVE (NEGATIVE); KETONES,URINE NEGATIVE (NEGATIVE); LEUKOCYTE ESTERASE,URINE NEGATIVE (NEGATIVE); NITRITE,URINE NEGATIVE (NEGATIVE); PROTEIN,URINE NEGATIVE (NEGATIVE); URINE SPECIFIC GRAVITY 1.026; UROBILINOGEN,URINE NEGATIVE mg/dL (<2.0)
[2019-04-24 01:41] LABS: ABSOLUTE BASOPHILS # (AUTO) 0.1 10^3/uL (0.0-0.2); ABSOLUTE EOSINOPHILS # (AUTO) 0.2 10^3/uL (0.0-0.6); ABSOLUTE LYMPHOCYTES (AUTO) 3.4 10^3/uL (0.5-4.7); ABSOLUTE MONOCYTES (AUTO) 0.7 10^3/uL (0.1-1.4); ABSOLUTE NEUT (AUTO) 10.6 10^3/uL (1.7-8.2); EOSINOPHILS % (AUTO) 1.2 % (0-6); HEMOGLOBIN 8.8 g/dL (12.0-15.5); LYMPHOCYTES % (AUTO) 22.9 % (13-45); MEAN CORPUSCULAR HEMOGLOBIN 23.7 pg (27.0-33.4); MEAN CORPUSCULAR HGB CONC 31.5 g/dL (32.0-36.0); MEAN CORPUSCULAR VOLUME 75 fl (80-97); MONOCYTES % (AUTO) 4.6 % (3-13); PLATELET COUNT 341 10^3/uL (150-450); RED BLOOD COUNT 3.72 10^6/uL (3.72-5.28); RED CELL DISTRIBUTION WIDTH 16.1 % (11.5-14.0); SEGMENTED NEUTROPHILS % (AUTO) 70.3 % (42-78); TOTAL CELLS COUNTED % (AUTO) 100 %; WHITE BLOOD COUNT 15.1 10^3/uL (4.0-10.5)
[2019-04-24 01:51] LABS: ALANINE AMINOTRANSFERASE 16 U/L (9-52); ALBUMIN 3.9 g/dL (3.5-5.0); ALKALINE PHOSPHATASE 108 U/L (38-126); ANION GAP 10 (5-19); ASPARTATE AMINO TRANSFERASE 13 U/L (14-36); BILIRUBIN,DIRECT 0.2 mg/dL (0.0-0.4); BILIRUBIN,TOTAL 0.4 mg/dL (0.2-1.3); BLOOD UREA NITROGEN 10 mg/dL (7-20); CALCIUM 9.6 mg/dL (8.4-10.2); CARBON DIOXIDE 25 mmol/L (22-30); CHLORIDE 105 mmol/L (98-107); GLUCOSE 135 mg/dL (75-110); LIPASE 44.7 U/L (23-300); POTASSIUM 4.1 mmol/L (3.6-5.0); SODIUM 139.7 mmol/L (137-145); TOTAL PROTEIN 7.2 g/dL (6.3-8.2)
[2019-04-24] MEDS ORDERED: CLINDAMYCIN HCL 150 MG CAPSULE PO ONE (02:23)
--- NOTE | 2019-04-24 02:23 | ER Document Report ---
ED General - General Chief Complaint: Abdominal Pain Stated Complaint: ABDOMINAL PAIN Time Seen by Provider: 04/24/19 00:18 Notes: Patient is a 33-year-old female history of a pancreatic pseudocyst secondary to recurrent gallstone induced pancreatitis who presents due to concerns of possible wound infection. Patient states that she had a cholecystectomy 4 days ago, also has a chronic wound from a J-tube site which was apparently excised du ring the surgery to allow for better wound healing. She notes that there is been increased foul-smelling drainage from the J-tube surgical site and is concerned that it may be infected. Notes a throbbing, aching, constant, severe pain to the area. States that the pain is been present since the operative. And is not necessarily worse today. Nothing seems to improve or worsen the pain. States she has had a subjective fever. Has not yet followed up with her surgeon regarding today's concerns. TRAVEL OUTSIDE OF THE [place] IN LAST 30 DAYS: No COUNTRY TRAVELED TO/FROM: [facility] - Related Data Allergies/Adverse Reactions: ceftriaxone [From Rocephin] Allergy (Verified 04/03/19 20:18) Past Medical History - General Information source: Patient - Social History Smoking Status: Never Smoker Frequency of alcohol use: None Drug Abuse: None Lives with: Family Family History: Reviewed & Not Pertinent - Past Medical History Cardiac Medical History: Reports: Hx Atrial Fibrillation Denies: Hx Congestive Heart Failure, Hx Coronary Artery Disease, Hx DVT, Hx Heart Attack, Hx Hypercholesterolemia, Hx Hypertension, Hx Peripheral Vascular Disease, Hx Pulmonary Embolism, Hx Heart Murmur Pulmonary Medical History: Denies: Hx Asthma, Hx Bronchitis, Hx COPD, Hx Pneumonia, Hx Intubation, Hx Respiratory Failure, Hx Sleep Apnea, Hx Tuberculosis Neurological Medical History: Denies: Hx Migraine, Hx Seizures Endocrine Medical History: Denies: Hx Diabetes Mellitus Type 1, Hx Diabetes Me llitus Type 2, Hx Hyperthyroidism, Hx Hypothyroidism Renal/ Medical History: Denies: Hx End Stage Renal Disease, Hx Peritoneal Dialysis Malignancy Medical History: Denies: Hx Bone Cancer, Hx Brain Cancer, Hx Breast Cancer, Hx Cervical Cancer, Hx Colorectal Cancer, Hx Leukemia, Hx Liver Cancer, Hx Lung Cancer, Hx Lymphoma, Hx Ovarian Cancer, Hx Pancreatic Cancer, Hx Renal (Kidney) Cancer, Hx Skin Cancer GI Medical History: Denies: Hx Ulcerative Colitis Musculoskeletal Medical History: Denies Hx Arthritis, Denies Hx Fibromyalgia, Denies Hx Gout Psychiatric Medical History: Denies: Hx Attention Deficit Hyperactivity Disorder, Hx Bipolar Disorder, Hx Dementia, Hx Depression, Hx Personality Disorder, Hx Post Traumatic Stress Disorder, Hx Schizoaffective Disorder Infectious Medical History: Denies: Hx C-Diff, Hx HIV, Hx MRSA, Hx VRE Past Surgical History: Reports: Hx Abdominal Surgery - pseudocyst drain, Hx Orthopedic Surgery - low back, nose, Hx Vascular Surgery - zayas placement - Immunizations Hx Diphtheria, Pertussis, Tetanus Vaccination: Yes - 2005 Review of Systems - Review of Systems Notes: Constitutional: Positive for subjective fever HENT: Negative for sore throat. Eyes: Negative for visual changes. Cardiovascular: Negative for chest pain. Respiratory: Negative for shortness of breath. Gastrointestinal: Negative for abdominal pain, vomiting or diarrhea. Genitourinary: Negative for dysuria. Musculoskeletal: Negative for back pain. Skin: Positive for wound pain Neurological: Negative for headaches, weakness or numbness. 10 point ROS negative except as marked above and in HPI. Physical Exam - Vital signs Vitals: Temp Pulse Resp BP Pulse Ox 98.8 F 101 H 20 122/71 99 04/23/19 22:26 04/23/19 22:26 04/23/19 22:26 04/23/19 22:26 04/23/19 22:26 Interpretation: Tachycardic - Heart rate 88 at the time of my assessment Notes: PHYSICAL EXAMINATION: GENERAL: Well-appearing, well-nourished and in no acute distress. HEAD: Atraumatic, normocephalic. EYES: Pupils equal round and reactive to light, extraocular movements intact, sclera anicteric, conjunctiva are normal. ENT: nares patent, oropharynx clear without exudates. Moist mucous membranes. NECK: Normal range of motion, supple without lymphadenopathy LUNGS: Breath sounds clear to auscultation bilaterally and equal. No wheezes rales or rhonchi. HEART: Regular rate and rhythm without murmurs ABDOMEN: Soft, nontender, normoactive bowel sounds. No guarding, no rebound. No masses appreciated. EXTREMITIES: Normal range of motion, no pitting or edema. No cyanosis. NEUROLOGICAL: No focal neurological deficits. Moves all extremities spontaneously and on command. PSYCH: Normal mood, normal affect. SKIN: Warm, Dry, normal turgor, all cholecystectomy incisional sites are well- healed, no evidence of infection. The J-tube site is packed with gauze, somewhat saturated and purulent expression. The gauze was removed, overall appears well healing, granulation tissue present. Course - Re-evaluation Re-evalutation: 04/24/19 02:21 Patient presents with concerns of a possible wound infection. The J-tube site that was excised during her operative course for cholecystectomy actually appears to be healing quite well. The patient is reporting subjective fever, has a nonspecific leukocytosis although the site itself appears minimally infected or potentially not infected at all. The area has been repacked with iodinated gauze and the patient has been started on clindamycin for coverage. Her abdominal exam itself is completely benign without any areas of focal tenderness and rebound or guarding. The patient is complaining only about pain around the G-tube surgical site. I do not believe imaging is indicated at this time. At this time will discharge with return precautions and follow-up recom mendations. Verbal discharge instructions given a the bedside and opportunity for questions given. Medication warnings reviewed. Patient is in agreement with this plan and has verbalized understanding of return precautions and the need for primary care follow-up in the next 24-72 hours. - Vital Signs Vital signs: Temp Pulse Resp BP Pulse Ox 98.8 F 101 H 20 122/71 99 04/23/19 22:26 04/23/19 22:26 04/23/19 22:26 04/23/19 22:26 04/23/19 22:26 - Laboratory Result Diagrams: 04/24/19 01:18 04/24/19 01:18 Laboratory results interpreted by me: 04/23/19 04/24/19 04/24/19 23:27 01:18 01:18 WBC 15.1 H Hgb 8.8 L Hct 28.0 L MCV 75 L MCH 23.7 L MCHC 31.5 L RDW 16.1 H Absolute Neutrophils 10.6 H Creatinine 0.45 L Glucose 135 H AST 13 L Urine Blood SMALL H Discharge - Discharge Clinical Impression: Pain at surgical site, Surgical site drainage Condition: Good Disposition: HOME, SELF-CARE Additional Instructions: The area appears overall to be well-healing but may have a small early infection given your characterization of the drainage as well as a possible fever at home. Please take antibiotic as prescribed. Packed the wound once daily with the gauze which you have been sent home. Contact your surgeon and let them know about today's emergency department visit tomorrow morning. Return immediately for recurrent fever greater than 101 F, worsening pain, increased drainage from the area, or any other symptoms that are worrisome to you. Prescriptions: Clindamycin HCl 300 mg PO TID #30 capsule
[2019-04-24 03:01] VITALS: BP 136/76
== END 2019-04-24 02:47 | disposition home or self-care (01) ==
LOC: ER 22:05
DX: G89.18 Other acute postprocedural pain (principal); R10.9 Unspecified abdominal pain; Z90.49 Acquired absence of other specified parts of digestive tract; I48.91 Unspecified atrial fibrillation
CPT/HCPCS: 99283; 36415; 83690; 85025; 81025; 80053; 81001; A6266; J1642

== ENCOUNTER 2019-05-27 13:51 | Emergency (ER) | payer MEDICAID, OTHER ==
[2019-05-27 14:01] VITALS: BP 151/99
[2019-05-27] MEDS ORDERED: FENTANYL CITRATE INJ/PF 100 MCG/2 ML AMPUL IV ONE (14:17)
--- NOTE | 2019-05-27 14:27 | ER Document Report ---
Addendum entered and electronically signed by GRAY KEEN FNP 05/27/19 14:44: ED Medical Screen (RME) - General Chief Complaint: Neck Problem Stated Complaint: NECK PAIN Time Seen by Provider: 05/27/19 14:06 Notes: I consulted Dr. Hurley when I first evaluated the patient and he recommended a CT of the neck. That was ordered. X-ray had called and noted that the catheter was not actually in her neck. I told him to hold off on the CT of the neck and the provider in the back will determine what study to order. TRAVEL OUTSIDE OF THE [place] IN LAST 30 DAYS: No COUNTRY TRAVELED TO/FROM: [facility] - Related Data Allergies/Adverse Reactions: ceftriaxone [From Rocephin] Allergy (Verified 05/27/19 13:52) Original Note: ED Medical Screen (RME) - General Chief Complaint: Neck Problem Stated Complaint: NECK PAIN Time Seen by Provider: 05/27/19 14:06 Notes: Patient is a 33-year-old female who presents the emergency department with a chief complaint of neck pain and difficulty swallowing. Patient has a Hartmann catheter in and states that her child had accidentally pulled on her Hartmann catheter and she felt 1 of her stitches pop. This happened about an hour ago. She states that she feels like the catheter is now in the right place. She has a history of chronic pancreatitis, pseudocyst, and necrotizing fasciitis. Exam: Hartmann catheter in place. Tenderness to right side of the anterior neck. I have greeted and performed a rapid initial assessment of this patient. A comprehensive ED assessment and evaluation of the patient, analysis of test results and completion of medical decision making process will be conducted by an additional ED providers. TRAVEL OUTSIDE OF THE [place] IN LAST 30 DAYS: No COUNTRY TRAVELED TO/FROM: [facility] - Related Data Allergies/Adverse Reactions: ceftriaxone [From Rocephin] Allergy (Verified 05/27/19 13:52) Past Medical History - Social History Frequency of alcohol use: None Drug Abuse: Marijuana - Past Medical History Cardiac Medical History: Reports: Hx Atrial Fibrillation Denies: Hx Congestive Heart Failure, Hx Coronary Artery Disease, Hx DVT, Hx Heart Attack, Hx Hypercholesterolemia, Hx Hypertension, Hx Peripheral Vascular Disease, Hx Pulmonary Embolism, Hx Heart Murmur Pulmonary Medical History: Denies: Hx Asthma, Hx Bronchitis, Hx COPD, Hx Pneumonia, Hx Intubation, Hx Respiratory Failure, Hx Sleep Apnea, Hx Tuberculosis Neurological Medical History: Denies: Hx Migraine, Hx Seizures Endocrine Medical History: Denies: Hx Diabetes Mellitus Type 1, Hx Diabetes Mellitus Type 2, Hx Hyperthyroidism, Hx Hypothyroidism Renal/ Medical History: Denies: Hx End Stage Renal Disease, Hx Peritoneal Dialysis Malignancy Medical History: Denies: Hx Bone Cancer, Hx Brain Cancer, Hx Breast Cancer, Hx Cervical Cancer, Hx Colorectal Cancer, Hx Leukemia, Hx Liver Cancer, Hx Lung Cancer, Hx Lymphoma, Hx Ovarian Cancer, Hx Pancreatic Cancer, Hx Renal (Kidney) Cancer, Hx Skin Cancer GI Medical History: Denies: Hx Ulcerative Colitis Musculoskeltal Medical History: Denies Hx Arthritis, Denies Hx Fibromyalgia, Denies Hx Gout Psychiatric Medical History: Denies: Hx Attention Deficit Hyperactivity Disorder, Hx Bipolar Disorder, Hx Dementia, Hx Depression, Hx Personality Disorder, Hx Post Traumatic Stress Disorder, Hx Schizoaffective Disorder Infectious Medical History: Denies: Hx C-Diff, Hx HIV, Hx MRSA, Hx VRE Past Surgical History: Reports: Hx Abdominal Surgery - pseudocyst drain, Hx Orthopedic Surgery - low back, nose, Hx Vascular Surgery - hartmann placement - Immunizations Hx Diphtheria, Pertussis, Tetanus Vaccination: Yes - 2005 Physical Exam - Vital signs Vitals: Temp Pulse Resp BP Pulse Ox 97.9 F 98 16 151/99 H 100 05/27/19 13:58 05/27/19 13:58 05/27/19 13:58 05/27/19 13:58 05/27/19 13:58 Course - Vital Signs Vital signs: Temp Pulse Resp BP Pulse Ox 97.9 F 98 16 151/99 H 100 05/27/19 13:58 05/27/19 13:58 05/27/19 13:58 05/27/19 13:58 05/27/19 13:58
--- NOTE | 2019-05-27 14:52 | RADIOLOGY REPORT (SQ) ---
EXAM DESCRIPTION: CHEST SINGLE VIEW COMPLETED DATE/TIME: 05/27/2019 2:42 pm REASON FOR STUDY: zayas catheter pulled; neck pain COMPARISON: None. EXAM PARAMETERS: NUMBER OF VIEWS: One view. TECHNIQUE: Single frontal radiographic view of the chest acquired. RADIATION DOSE: NA LIMITATIONS: None. FINDINGS: LUNGS AND PLEURA: No opacities, masses or pneumothorax. No pleural effusion. MEDIASTINUM AND HILAR STRUCTURES: No masses. Contour normal. HEART AND VASCULAR STRUCTURES: Heart normal in size. Normal vasculature. BONES: No acute findings. HARDWARE: Central venous catheter on of the right side. Tip at the level of the superior vena cava. OTHER: No other significant finding. IMPRESSION: NO ACUTE RADIOGRAPHIC FINDING IN THE CHEST. CENTRAL VENOUS CATHETER WITH THE TIP AT THE LEVEL OF SUPERIOR VENA CAVA. TECHNICAL DOCUMENTATION: JOB ID: [id number] [employer]- All Rights Reserved Reading location - IP/workstation name: [email or web address]
--- NOTE | 2019-05-27 16:03 | RADIOLOGY REPORT (SQ) ---
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 TECHNIQUE: CT scan of the neck and chest performed using helical scanning technique with dynamic int ravenous contrast injection. Images reviewed with lung, soft tissue and bone windows. Reconstructed coronal and sagittal MPR and MIP images reviewed. All images stored on PACS. All CT scanners at this facility use dose modulation, iterative reconstruction, and/or weight based d osing when appropriate to reduce radiation dose to as low as reasonably achievable (ALARA). [facility]: Dose Right [facility]: CareDose [facility]: Dose Right [facility]: Teradose 4D [facility]: [employer] CONTRAST TYPE AND DOSE: contrast/concentration: Isovue mg/ml; Total Contrast Delivered: 64.0 ml; To tabitha Saline Delivered: 66.0 ml RENAL FUNCTION: None required. The patient is less than 50 years old. RADIATION DOSE: CT Rad equipment meets quality standard of care and radiation dose reduction techniq ues were employed. CTDIvol: 3.3 - 29.8 mGy. DLP: 1418 mGy-cm. . LIMITATIONS: None. FINDINGS: Neck soft tissues are within normal limits. No vascular occlusions. LUNGS AND PLEURA: No opacities, nodules, masses. No pneumothorax. No effusions. HILAR AND MEDIASTINAL STRUCTURES: No identified masses or abnormal nodes. HEART AND VASCULAR STRUCTURES: No aneurysm or dissection. No central pulmonary emboli. No pericardi al effusion. HARDWARE: Right IJ central venous catheter. UPPER ABDOMEN: No significant findings. Limited exam. THYROID AND OTHER SOFT TISSUES: No masses. No adenopathy. BONES: No significant finding. OTHER: 2 cm linear metallic foreign body in the subcutaneous soft tissues in the left upper quadrant anterior body wall. No intra-abdominal penetration. IMPRESSION: No acute findings in the chest or neck. 2 cm linear metallic foreign body in the subcut aneous soft tissues in the left upper quadrant anterior body wall. No intra-abdominal penetration.. COMMENT: Results called to Dr. Gonzalez at 1555 hours. TECHNICAL DOCUMENTATION: JOB ID: [id number] Quality ID # [id number]: Final reports with documentation of one or more dose reduction techniques (e.g., Au tomated exposure control, adjustment of the mA and/or kV according to patient size, use of iterative reconstruction technique) 2010 [employer]- All Rights Reserved Reading location - IP/workstation name: [email or web address]
--- NOTE | 2019-05-27 16:03 | RADIOLOGY REPORT (SQ) ---
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 TECHNIQUE: CT scan of the neck and chest performed using helical scanning technique with dynamic int ravenous contrast injection. Images reviewed with lung, soft tissue and bone windows. Reconstructed coronal and sagittal MPR and MIP images reviewed. All images stored on PACS. All CT scanners at this facility use dose modulation, iterative reconstruction, and/or weight based d osing when appropriate to reduce radiation dose to as low as reasonably achievable (ALARA). [facility]: Dose Right [facility]: CareDose [facility]: Dose Right [facility]: Teradose 4D [facility]: TrueAbility CONTRAST TYPE AND DOSE: contrast/concentration: Isovue mg/ml; Total Contrast Delivered: 64.0 ml; To tabitha Saline Delivered: 66.0 ml RENAL FUNCTION: None required. The patient is less than 50 years old. RADIATION DOSE: CT Rad equipment meets quality standard of care and radiation dose reduction techniq ues were employed. CTDIvol: 3.3 - 29.8 mGy. DLP: 1418 mGy-cm. . LIMITATIONS: None. FINDINGS: Neck soft tissues are within normal limits. No vascular occlusions. LUNGS AND PLEURA: No opacities, nodules, masses. No pneumothorax. No effusions. HILAR AND MEDIASTINAL STRUCTURES: No identified masses or abnormal nodes. HEART AND VASCULAR STRUCTURES: No aneurysm or dissection. No central pulmonary emboli. No pericardi al effusion. HARDWARE: Right IJ central venous catheter. UPPER ABDOMEN: No significant findings. Limited exam. THYROID AND OTHER SOFT TISSUES: No masses. No adenopathy. BONES: No significant finding. OTHER: 2 cm linear metallic foreign body in the subcutaneous soft tissues in the left upper quadrant anterior body wall. No intra-abdominal penetration. IMPRESSION: No acute findings in the chest or neck. 2 cm linear metallic foreign body in the subcut aneous soft tissues in the left upper quadrant anterior body wall. No intra-abdominal penetration.. COMMENT: Results called to Dr. Gonzalez at 1555 hours. TECHNICAL DOCUMENTATION: JOB ID: [id number] [place]-72 Quality ID # [id number]: Final reports with documentation of one or more dose reduction techniques (e.g., Au tomated exposure control, adjustment of the mA and/or kV according to patient size, use of iterative reconstruction technique) 2010 [employer]- All Rights Reserved Reading location - IP/workstation name: [email or web address]
[2019-05-27] MEDS ORDERED: METHOCARBAMOL 750 MG TABLET PO ONE (17:00)
--- NOTE | 2019-05-27 17:08 | ER Document Report ---
ED General - General Chief Complaint: Neck Problem Stated Complaint: NECK PAIN Time Seen by Provider: 05/27/19 14:06 Notes: 33-year-old female presents emergency department stating that she has a Zayas catheter on the right side of her chest and when she went to [employer] her son just prior to arrival he grabbed the catheter and she felt a pop and thought that it tore loose. States that there are no sutures left attached and that the catheter is hanging significantly lower than it should. Patient states that she is having pain radiating from her jaw into her catheter and that she is having pain when she moves her neck. Denies any bleeding from the site, denies any headache, fevers or any other symptoms. Initially told the nurse practitioner that she was having difficulty swallowing but denies that to me. TRAVEL OUTSIDE OF THE [place] IN LAST 30 DAYS: No COUNTRY TRAVELED TO/FROM: [facility] - Related Data Allergies/Adverse Reactions: ceftriaxone [From Rocephin] Allergy (Verified 05/27/19 13:52) Past Medical History - General Information source: Patient - Social History Smoking Status: Never Smoker Frequency of alcohol use: None Drug Abuse: Marijuana Family History: Reviewed & Not Pertinent Patient has suicidal ideation: No Patient has homicidal ideation: No - Past Medical History Cardiac Medical History: Reports: Hx Atrial Fibrillation Denies: Hx Congestive Heart Failure, Hx Coronary Artery Disease, Hx DVT, Hx Heart Attack, Hx Hypercholesterolemia, Hx Hypertension, Hx Peripheral Vascular Disease, Hx Pulmonary Embolism, Hx Heart Murmur Pulmonary Medical History: Denies: Hx Asthma, Hx Bronchitis, Hx COPD, Hx Pneumonia, Hx Intubation, Hx Respiratory Failure, Hx Sleep Apnea, Hx Tuberculosis Neurological Medical History: Denies: Hx Migraine, Hx Seizures Endocrine Medical History: Denies: Hx Diabetes Mellitus Type 1, Hx Diabetes Mellitus Type 2, Hx Hyperthyroidism, Hx Hypothyroidism Renal/ Medical History: Denies: Hx End Stage Renal Disease, Hx Peritoneal Dialysis Malignancy Medical History: Denies: Hx Bone Cancer, Hx Brain Cancer, Hx Breast Cancer, Hx Cervical Cancer, Hx Colorectal Cancer, Hx Leukemia, Hx Liver Cancer, Hx Lung Cancer, Hx Lymphoma, Hx Ovarian Cancer, Hx Pancreatic Cancer, Hx Renal (Kidney) Cancer, Hx Skin Cancer GI Medical History: Denies: Hx Ulcerative Colitis Musculoskeletal Medical History: Denies Hx Arthritis, Denies Hx Fibromyalgia, Denies Hx Gout Psychiatric Medical History: Denies: Hx Attention Deficit Hyperactivity Disorder, Hx Bipolar Disorder, Hx Dementia, Hx Depression, Hx Personality Disorder, Hx Post Traumatic Stress Disorder, Hx Schizoaffective Disorder Infectious Medical History: Denies: Hx C-Diff, Hx HIV, Hx MRSA, Hx VRE Past Surgical History: Reports: Hx Abdominal Surgery - pseudocyst drain, Hx Orthopedic Surgery - low back, nose, Hx Vascular Surgery - zayas placement - Immunizations Hx Diphtheria, Pertussis, Tetanus Vaccination: Yes - 2005 Review of Systems - Review of Systems Constitutional: No symptoms reported EENT: See HPI - Neck pain Cardiovascular: No symptoms reported Musculoskeletal: See HPI, Neck pain Skin: See HPI - Zayas catheter dislodgment. -: Yes All other systems reviewed and negative Physical Exam - Vital signs Vitals: Temp Pulse Resp BP Pulse Ox 97.9 F 98 16 151/99 H 100 05/27/19 13:58 05/27/19 13:58 05/27/19 13:58 05/27/19 13:58 05/27/19 13:58 Interpretation: Hypertensive - Notes Notes: GENERAL: Alert, interacts well. No acute distress. HEAD: Normocephalic, atraumatic EYES: Pupils equal, round and reactive to light, extraocular movements intact. ENT: Oral mucosa moist, tongue midline. NECK: Full range of motion, supple, trachea midline. Right sided trapezius tenderness palpation of the cervical portion. LUNGS: Clear to auscultation bilaterally, no wheezes, rales or rhonchi, no respiratory distress. Pigment pat catheter in good position on the right side of the anterior chest wall, one set of sutures has popped out, the other set of sutures is still in good position. No signs of the catheter has dislodged. No tenderness to palpation along the path of the Zayas catheter to above the clavicle. No swelling or erythema around it. HEART: Regular rate and rhythm no murmurs gallops rubs ABDOMEN: Soft, nontender, nondistended, bowel sounds present in all 4 quadrants. There is a slightly hypertrophic nonhealing wound in the midline of the upper abdomen, minimally tender to palpation, unable to palpate or see any foreign body, there is a small amount of yellowish drainage on the dressing, I am not able to express any drainage from the wound. No erythema. EXTREMITIES: Moves all 4 extremities spontaneously, no edema, radial and dorsalis pedis pulses 2/4 bilaterally. No cyanosis. NEUROLOGICAL: Alert and oriented x3, normal speech. PSYCH: Normal mood, normal affect. SKIN: Warm, Dry. Course - Re-evaluation Re-evalutation: 05/27/19 17:13 Initially ordered a chest x-ray to see whether or not the catheter was in good position, it did show venous catheter and the right side at the level of the superior vena cava. I am not worried that the vein this shows that the catheter has not dislodged however I am concerned for the possibility of superior vena cava syndrome given the fact that she was complaining to the nurse practitioner that she had difficulty swallowing and she is having such pain and complaining of some difficulty moving her neck so I did order a CT scan of the neck and chest to look for superior vena cava syndrome, there are no vascular occlusions, the right IJ central venous catheter is in good position, interestingly the abdomen revealed a 2 cm linear metallic foreign body in the subcutaneous soft tissues in the left upper quadrant anterior body wall no intra-abdominal penetration. When I discussed this finding with the patient the patient told me that she had a pancreatic pseudocyst and her pancreatitis was so bad that the had to put in a drain which has now since healed but they also put in a PEG tube but they were having such trouble with it but they let it close off. She had a prior infection in this area but has not had an infection there for a while. Denies any knowledge of remaining hardware. I did discuss with the patient that the CAT scan clearly shows a metallic foreign body however I was unable to palpate on examination, at this time without full knowledge of the surgeries that have been done and whether or not they intentionally left behind any hardware I did not think it was prudent to go digging for a metallic foreign body that is not causing her any current problems. I did recommend that she call her doctor back in [place] tomorrow morning to discuss this finding with them. I have also provided her with a copy of the CD. Patient will be going back to [place] in 2 weeks so she will be able to have follow-up with them within the next month. Patient is going to return here should she develop increasing drainage, any redness, any fevers, increasing pain or any new or concerning symptoms in that area. Regarding the patient's neck pain it is entirely reproducible on palpation of her trapezius muscle, I feel this is likely a muscle spasm not a problem with her Zayas catheter. The Zayas catheter is still well attached, patient will be given Robaxin and discharged home. - Vital Signs Vital signs: Temp Pulse Resp BP Pulse Ox 97.9 F 98 16 151/99 H 100 05/27/19 13:58 05/27/19 13:58 05/27/19 13:58 05/27/19 13:58 05/27/19 13:58 Discharge - Discharge Clinical Impression: Trapezius muscle spasm, Metallic foreign body in the abdomen Condition: Stable Disposition: HOME, SELF-CARE Additional Instructions: Muscle Relaxers Muscle relaxing medications are usually prescribed for acute muscle spasm or injury to the neck and back. They are often combined with antiinflammatory pain medication for increased relief. You may stop the muscle relaxer when the pain and stiffness have improved. Start the medication again if spasms recur. Muscle relaxers may cause drowsiness, especially with the first dose. Do not operate machinery or drive while under the effects of the medication. Most muscle relaxers last up to 24 hours. Do not combine the medication with alcohol. Muscle Strain You have strained a muscle -- torn the fibers within the muscle. This often occurs with strenuous exertion, or during an injury that suddenly stretches the muscle. The seriousness of a strain varies. Some strains heal within days, others cause problems for months. X-rays cannot show a muscle strain. X-rays are taken only if symptoms suggest that a fracture could be present. The usual treatment of a muscle strain is rest and ice packs. Sometimes, a sling, splint, or crutches may be necessary to rest the muscle. The muscle can be used again once pain subsides. Severe strains require a special exercise and stretching program to prevent permanent stiffness and disability. Your doctor will advise you if this will be necessary. Call the doctor immediately if pain or swelling becomes severe, or if numbness or discoloration develop. The CAT scan shows that you have a metallic foreign body in the left upper quadrant of your abdomen in the same area where they had previously put the PEG tube. On physical exam I am unable to feel it and I am unable to see it. Since you do not have any signs of an active infection at this time we decided not to go digging afterward in the emergency department. If you develop increasing drainage, increasing pain, any redness or any fevers please return immediately t o the emergency department. Otherwise please call the people who performed her surgeries in [place] tomorrow morning and tell them about this finding on the CAT scan. Please also bring them a copy of your CD when you follow-up with them in person within the next month. Prescriptions: Methocarbamol [Robaxin 750 mg Tablet] 750 mg PO ASDIR PRN #40 tablet PRN Reason:
== END 2019-05-27 18:05 | disposition home or self-care (01) ==
LOC: ER 13:51
DX: M62.830 Muscle spasm of back (principal); M79.5 Residual foreign body in soft tissue; Z45.2 Encounter for adjustment and management of vascular access device; R68.84 Jaw pain; M54.2 Cervicalgia; F12.10 Cannabis abuse, uncomplicated; Z88.1 Allergy status to other antibiotic agents; Z98.890 Other specified postprocedural states
CPT/HCPCS: 99284; 96374; 71045; 70491; 71260; J3010; J3490

== ENCOUNTER 2019-08-05 11:22 | Emergency (ER) | payer OTHER, MEDICAID ==
[2019-08-05] MEDS ORDERED: NORMAL SALINE 1000 ML 1,000 ML IV ONE (11:33)
--- NOTE | 2019-08-05 11:35 | ER Document Report ---
ED Medical Screen (RME) - General Chief Complaint: Abdominal Pain Stated Complaint: ABDOMINAL PAIN Time Seen by Provider: 08/05/19 11:29 Mode of Arrival: Ambulatory Information source: Patient Notes: Patient presents complaining of abdominal pain for the past 4 days. Patient reports fever of 102 yesterday. Patient also reports nausea and vomiting. 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 Patient has had her gallbladder taken out. Patient also has had a chronic wound to her abdomen after they were attempting to insert a PEG tube. Patient states that is a complication of this she developed an abscess which also had to be surgically drained previously. I have greeted and performed a rapid initial assessment of this patient. A comprehensive ED assessment and evaluation of the patient, analysis of test results and completion of the medical decision making process will be conducted by additional ED providers. TRAVEL OUTSIDE OF THE [place] IN LAST 30 DAYS: No COUNTRY TRAVELED TO/FROM: [facility] - Related Data Allergies/Adverse Reactions: ceftriaxone [From Rocephin] Allergy (Verified 08/05/19 11:33) Past Medical History - Social History Chew tobacco use (# tins/day): No Frequency of alcohol use: None Drug Abuse: None - Past Medical History Cardiac Medical History: Reports: Hx Atrial Fibrillation Denies: Hx Congestive Heart Failure, Hx Coronary Artery Disease, Hx DVT, Hx Heart Attack, Hx Hypercholesterolemia, Hx Hypertension, Hx Peripheral Vascular Disease, Hx Pulmonary Embolism, Hx Heart Murmur Pulmonary Medical History: Denies: Hx Asthma, Hx Bronchitis, Hx COPD, Hx Pneumonia, Hx Intubation, Hx Respiratory Failure, Hx Sleep Apnea, Hx Tuberculosis Neurological Medical History: Denies: Hx Migraine, Hx Seizures Endocrine Medical History: Denies: Hx Diabetes Mellitus Type 1, Hx Diabetes Mellitus Type 2, Hx Hyperthyroidism, Hx Hypothyroidism Renal/ Medical History: Denies: Hx End Stage Renal Disease, Hx Peritoneal Dialysis Malignancy Medical History: Denies: Hx Bone Cancer, Hx Brain Cancer, Hx Breast Cancer, Hx Cervical Cancer, Hx Colorectal Cancer, Hx Leukemia, Hx Liver Cancer, Hx Lung Cancer, Hx Lymphoma, Hx Ovarian Cancer, Hx Pancreatic Cancer, Hx Renal (Kidney) Cancer, Hx Skin Cancer GI Medical History: Denies: Hx Ulcerative Colitis Musculoskeltal Medical History: Denies Hx Arthritis, Denies Hx Fibromyalgia, Denies Hx Gout Psychiatric Medical History: Denies: Hx Attention Deficit Hyperactivity Disorder, Hx Bipolar Disorder, Hx Dementia, Hx Depression, Hx Personality Disorder, Hx Post Traumatic Stress Disorder, Hx Schizoaffective Disorder Infectious Medical History: Denies: Hx C-Diff, Hx HIV, Hx MRSA, Hx VRE Past Surgical History: Reports: Hx Abdominal Surgery - pseudocyst drain, Hx Orthopedic Surgery - low back, nose, Hx Vascular Surgery - zayas placement - Immunizations Hx Diphtheria, Pertussis, Tetanus Vaccination: Yes - 2005 Physical Exam - Vital signs Vitals: Temp Pulse Resp BP Pulse Ox 97.8 F 126 H 16 152/97 H 100 08/05/19 11:26 08/05/19 11:26 08/05/19 11:26 08/05/19 11:26 08/05/19 11:26 - Abdominal Tenderness: Tender - RUQ and overlying chronic abd wound Course - Vital Signs Vital signs: Temp Pulse Resp BP Pulse Ox 97.8 F 125 H 16 152/97 H 97 08/05/19 11:30 08/05/19 11:30 08/05/19 11:30 08/05/19 11:30 08/05/19 11:30
[2019-08-05 12:32] LABS: ABSOLUTE EOSINOPHILS # (AUTO) 0.2 10^3/uL (0.0-0.6); ABSOLUTE MONOCYTES (AUTO) 0.5 10^3/uL (0.1-1.4); ABSOLUTE NEUT (AUTO) 8.7 10^3/uL (1.7-8.2); BASOPHILS % (AUTO) 0.4 % (0-2); EOSINOPHILS % (AUTO) 1.3 % (0-6); HEMATOCRIT 32.1 % (36.0-47.0); HEMOGLOBIN 9.9 g/dL (12.0-15.5); LYMPHOCYTES % (AUTO) 23.9 % (13-45); MEAN CORPUSCULAR HEMOGLOBIN 23.5 pg (27.0-33.4); MEAN CORPUSCULAR HGB CONC 30.9 g/dL (32.0-36.0); MEAN CORPUSCULAR VOLUME 76 fl (80-97); PLATELET COUNT 353 10^3/uL (150-450); RED BLOOD COUNT 4.23 10^6/uL (3.72-5.28); RED CELL DISTRIBUTION WIDTH 16.7 % (11.5-14.0); SEGMENTED NEUTROPHILS % (AUTO) 70.4 % (42-78); TOTAL CELLS COUNTED % (AUTO) 100 %; WHITE BLOOD COUNT 12.4 10^3/uL (4.0-10.5)
[2019-08-05 12:34] LABS: VENOUS BLOOD BASE EXCESS 1.9 mmol/L; VENOUS BLOOD HCO3 27.6 mmol/L (20-32); VENOUS BLOOD PH 7.38 (7.30-7.42)
[2019-08-05 12:49] LABS: ALBUMIN 4.1 g/dL (3.5-5.0); ALKALINE PHOSPHATASE 132 U/L (38-126); ANION GAP 8 (5-19); ASPARTATE AMINO TRANSFERASE 14 U/L (14-36); BILIRUBIN,DIRECT 0.1 mg/dL (0.0-0.4); BILIRUBIN,TOTAL 0.5 mg/dL (0.2-1.3); BLOOD UREA NITROGEN 12 mg/dL (7-20); CALCIUM 9.6 mg/dL (8.4-10.2); CARBON DIOXIDE 29 mmol/L (22-30); CHLORIDE 100 mmol/L (98-107); GLUCOSE 142 mg/dL (75-110); POTASSIUM 4.2 mmol/L (3.6-5.0); TOTAL PROTEIN 7.4 g/dL (6.3-8.2)
[2019-08-05] MEDS ORDERED: FENTANYL CITRATE INJ/PF 100 MCG/2 ML AMPUL IV ONE (12:50)
[2019-08-05] MEDS ORDERED: ONDANSETRON HCL INJ/PF 4 MG/2 ML SDV IV ONE (12:51)
[2019-08-05 12:56] LABS: APPEARANCE,URINE CLOUDY; BILIRUBIN,URINE NEGATIVE (NEGATIVE); COLOR,URINE YELLOW; GLUCOSE, URINE NEGATIVE (NEGATIVE); KETONES,URINE NEGATIVE (NEGATIVE); PROTEIN,URINE NEGATIVE (NEGATIVE); URINE SPECIFIC GRAVITY 1.025; UROBILINOGEN,URINE NEGATIVE mg/dL (<2.0)
--- NOTE | 2019-08-05 13:33 | ER Document Report ---
ED General - General Chief Complaint: Abdominal Pain Stated Complaint: ABDOMINAL PAIN Time Seen by Provider: 08/05/19 11:29 Primary Care Provider: ANDREW GONZALEZ PA-C [Primary Care Provider] - Follow up as needed Mode of Arrival: Ambulatory Information source: Patient Notes: 33-year-old female with a history of pancreatitis, pancreatic pseudocyst presents with complaint of epigastric and left upper quadrant abdominal pain that started 1 week prior to arrival. Patient describes the pain as stabbing, aching and associated with nausea and vomiting. She denies any diarrhea. She does report a fever of 102. Patient states that she is in the process of GI follow-up for possible stent placement. She states this pain feels different than prior episodes of pancreatitis. Patient denies flank pain, back pain, dysuria, hematuria, chest pain, shortness of breath. TRAVEL OUTSIDE OF THE [place] IN LAST 30 DAYS: No COUNTRY TRAVELED TO/FROM: [facility] Onset: Last week Onset/Duration: Gradual, Persistent, Worse Quality of pain: Burning, Sharp Severity: Moderate Pain Level: 3 Associated symptoms: Fever, Nausea, Vomiting. denies: Diarrhea, Shortness of breath, Sweating Exacerbated by: Denies, Standing Similar symptoms previously: Yes Recently seen / treated by doctor: Yes - Related Data Allergies/Adverse Reactions: ceftriaxone [From Rocephin] Allergy (Verified 08/05/19 11:33) Past Medical History - General Information source: Patient - Social History Smoking Status: Never Smoker Chew tobacco use (# tins/day): No Frequency of alcohol use: None Drug Abuse: None Lives with: Family Family History: Reviewed & Not Pertinent Patient has suicidal ideation: No Patient has homicidal ideation: No - Past Medical History Cardiac Medical History: Reports: Hx Atrial Fibrillation Denies: Hx Congestive Heart Failure, Hx Coronary Artery Disease, Hx DVT, Hx Heart Attack, Hx Hypercholesterolemia, Hx Hypertension, Hx Peripheral Vascular Disease, Hx Pulmonary Embolism, Hx Heart Murmur Pulmonary Medical History: Denies: Hx Asthma, Hx Bronchitis, Hx COPD, Hx Pneumonia, Hx Intubation, Hx Respiratory Failure, Hx Sleep Apnea, Hx Tuberculosis Neurological Medical History: Denies: Hx Migraine, Hx Seizures Endocrine Medical History: Denies: Hx Diabetes Mellitus Type 1, Hx Diabetes Mellitus Type 2, Hx Hyperthyroidism, Hx Hypothyroidism Renal/ Medical History: Denies: Hx End Stage Renal Disease, Hx Peritoneal D ialysis Malignancy Medical History: Denies: Hx Bone Cancer, Hx Brain Cancer, Hx Breast Cancer, Hx Cervical Cancer, Hx Colorectal Cancer, Hx Leukemia, Hx Liver Cancer, Hx Lung Cancer, Hx Lymphoma, Hx Ovarian Cancer, Hx Pancreatic Cancer, Hx Renal (Kidney) Cancer, Hx Skin Cancer GI Medical History: Denies: Hx Ulcerative Colitis Musculoskeletal Medical History: Denies Hx Arthritis, Denies Hx Fibromyalgia, Denies Hx Gout Psychiatric Medical History: Denies: Hx Attention Deficit Hyperactivity Disorder, Hx Bipolar Disorder, Hx Dementia, Hx Depression, Hx Personality Disorder, Hx Post Traumatic Stress Disorder, Hx Schizoaffective Disorder Infectious Medical History: Denies: Hx C-Diff, Hx HIV, Hx MRSA, Hx VRE Past Surgical History: Reports: Hx Abdominal Surgery - pancreatic pseudocyst drain, Hx Cholecystectomy, Hx Orthopedic Surgery - low back, nose, Hx Vascular Surgery - zayas placement - Immunizations Hx Diphtheria, Pertussis, Tetanus Vaccination: Yes - 2006 Review of Systems - Review of Systems Notes: REVIEW OF SYSTEMS: CONSTITUTIONAL : Denies chills, or sweats. Denies recent illness. Denies weight loss, recent hospitalizations. EENT: Denies visual changes, eye pain. Denies sore throat, oral lesions, difficulty swallowing. CARDIOVASCULAR: Denies chest pain. Denies palpitations. Denies lower extremity edema. RESPIRATORY: Denies cough. Denies shortness of breath, wheezing. GASTROINTESTINAL: Denies abdominaldistention. Denies diarrhea. Denies blood in vomitus, stools, or per rectum. Denies black, tarry stools. Denies constipation. GENITOURINARY: Denies difficulty urinating, painful urination, frequency, blood in urine, or vaginal discharge. MUSCULOSKELETAL: Denies back or neck pain or stiffness. Denies joint pain or swelling. SKIN: Denies rash, lesions or sores. HEMATOLOGIC : Denies easy bruising or bleeding. LYMPHATIC: Denies swollen glands. NEUROLOGICAL: Denies confusion or altered mental status. Denies loss of consciousness. Denies dizziness or lightheadedness. Denies headache. Denies weakness or paralysis. Denies problems difficulty with ambulation, slurred speech. Denies sensory loss, numbness, or tingling. Denies seizures. PSYCHIATRIC: Denies anxiety or stress. Denies depression, suicidal ideation, or homicidal ideation. Denies visual or auditory hallucinations. Physical Exam - Vital signs Vitals: Temp Pulse Resp BP Pulse Ox 97.8 F 126 H 16 152/97 H 100 08/05/19 11:26 08/05/19 11:26 08/05/19 11:26 08/05/19 11:26 08/05/19 11:26 - Notes Notes: PHYSICAL EXAMINATION: GENERAL: Well-appearing, well-nourished and in no acute distress. HEAD: Atraumatic, normocephalic. EYES: Pupils equal round and reactive to light, extraocular movements intact, conjunctiva are normal. ENT: Nares patent, oropharynx clear without exudates. Moist mucous membranes. NECK: Normal range of motion, supple without lymphadenopathy LUNGS: Breath sounds clear to auscultation bilaterally and equal. No wheezes rales or rhonchi. HEART: Regular rate and rhythm without murmurs ABDOMEN: Soft, tenderness with palpation to the epigastrium and left upper quadrant. No guarding, no rebound. No masses appreciated. Female : deferred Musculoskeletal: Normal range of motion, no pitting or edema. No cyanosis. NEUROLOGICAL: Cranial nerves grossly intact. Normal speech, normal gait. Normal sensory, motor exams PSYCH: Normal mood, normal affect. SKIN: Warm, Dry, normal turgor, no rashes or lesions noted. Course - Re-evaluation Re-evalutation: 08/05/19 13:32 Laboratory 08/05/19 08/05/19 08/05/19 12:00 12:00 12:00 WBC 12.4 H RBC 4.23 Hgb 9.9 L Hct 32.1 L MCV 76 L MCH 23.5 L MCHC 30.9 L RDW 16.7 H Plt Count 353 Lymph % (Auto) 23.9 [place] % (Auto) 4.0 Eos % (Auto) 1.3 Baso % (Auto) 0.4 Absolute Neuts (auto) 8.7 H Absolute Lymphs (auto) 3.0 Absolute Monos (auto) 0.5 Absolute Eos (auto) 0.2 Absolute Basos (auto) 0.0 Seg Neutrophils % 70.4 VBG pH VBG pCO2 VBG HCO3 VBG Base Excess Sodium 137.0 Potassium 4.2 Chloride 100 Carbon Dioxide 29 Anion Gap 8 BUN 12 Creatinine 0.66 Est GFR ( Amer) > 60 Est GFR (MDRD) Non-Af > 60 Glucose 142 H Lactic Acid 1.1 Calcium 9.6 Total Bilirubin 0.5 Direct Bilirubin 0.1 Neonat Total Bilirubin Not Reportable Neonat Direct Bilirubin Not Reportable Neonat Indirect Bili Not Reportable AST 14 ALT 10 Alkaline Phosphatase 132 H Total Protein 7.4 Albumin 4.1 Lipase 53.1 Serum HCG, Qual Urine Color Urine Appearance Urine pH Ur Specific Amelia Urine Protein Urine Glucose (UA) Urine Ketones Urine Blood Urine Nitrite (Reflex) Urine Bilirubin Urine Urobilinogen Leukocyte Esterase Rfl Urine RBC (Auto) U Hyaline Cast (Auto) Urine Bacteria (Auto) Urine WBC (Reflex) Squamous Epi Cells Auto Urine Mucus (Auto) Urine Ascorbic Acid 08/05/19 08/05/19 08/05/19 12:00 12:00 12:10 WBC RBC Hgb Hct MCV MCH MCHC RDW Plt Count Lymph % (Auto) [place] % (Auto) Eos % (Auto) Baso % (Auto) Absolute Neuts (auto) Absolute Lymphs (auto) Absolute Monos (auto) Absolute Eos (auto) Absolute Basos (auto) Seg Neutrophils % VBG pH 7.38 VBG pCO2 48.0 VBG HCO3 27.6 VBG Base Excess 1.9 Sodium Potassium Chloride Carbon Dioxide Anion Gap BUN Creatinine Est GFR ( Amer) Est GFR (MDRD) Non-Af Glucose Lactic Acid Calcium Total Bilirubin Direct Bilirubin Neonat Total Bilirubin Neonat Direct Bilirubin Neonat Indirect Bili AST ALT Alkaline Phosphatase Total Protein Albumin Lipase Serum HCG, Qual NEGATIVE Urine Color YELLOW Urine Appearance CLOUDY Urine pH 6.0 Ur Specific Amelia 1.025 Urine Protein NEGATIVE Urine Glucose (UA) NEGATIVE Urine Ketones NEGATIVE Urine Blood MODERATE H Urine Nitrite (Reflex) NEGATIVE Urine Bilirubin NEGATIVE Urine Urobilinogen NEGATIVE Leukocyte Esterase Rfl MODERATE H Urine RBC (Auto) 20 U Hyaline Cast (Auto) 1 Urine Bacteria (Auto) TRACE Urine WBC (Reflex) 5 Squamous Epi Cells Auto 21 Urine Mucus (Auto) MOD Urine Ascorbic Acid NEGATIVE Temp Pulse Resp BP Pulse Ox 97.8 F 125 H 16 152/97 H 97 08/05/19 11:30 08/05/19 11:30 08/05/19 11:30 08/05/19 11:30 08/05/19 11:30 08/05/19 14:15 Patient reports having recently been treated with Cipro for urinary tract infection. This would explain her urinalysis which shows moderate leukoesterase, moderate blood. 10/13/19 17:22 After performing a Medical Screening Examination, I estimate there is LOW risk for ACUTE APPENDICITIS, pancreatitis, BOWEL OBSTRUCTION, ACUTE CHOLECYSTITIS, PERFORATED DIVERTICULITIS, INCARCERATED HERNIA, PANCREATITIS, PELVIC INFLAMMATORY DISEASE, PERFORATED ULCER, ECTOPIC , or TUBO-OVARIAN ABSCESS, thus I consider the discharge disposition reasonable. Also, there is no evidence or peritonitis, sepsis, or toxicity. I have reevaluated this patient multiple times and no significant life threatening changes are noted. The patient and I have discussed the diagnosis and risks, and we agree with discharging home with close follow-up with the understanding that symptoms and presentations can change. We also discussed returning to the Emergency Department immediately if new or worsening symptoms occur. We have discussed the symptoms which are most concerning (e.g., bloody stool, fever, changing or worsening pain, vomiting) that necessitate immediate return. - Vital Signs Vital signs: Temp Pulse Resp BP Pulse Ox 98.8 F 90 16 129/74 H 100 08/05/19 15:36 08/05/19 15:36 08/05/19 15:36 08/05/19 15:36 08/05/19 15:36 - Laboratory Result Diagrams: 08/05/19 12:00 08/05/19 12:00 Laboratory results interpreted by me: 08/05/19 08/05/19 08/05/19 12:00 12:00 12:10 WBC 12.4 H Hgb 9.9 L Hct 32.1 L MCV 76 L MCH 23.5 L MCHC 30.9 L RDW 16.7 H Absolute Neuts (auto) 8.7 H Glucose 142 H Alkaline Phosphatase 132 H Urine Blood MODERATE H Leukocyte Esterase Rfl MODERATE H - Diagnostic Test Radiology reviewed: Image reviewed, Reports reviewed Discharge - Discharge Clinical Impression: Abdominal pain Qualifiers: Abdominal location: left upper quadrant Qualified Code(s): R10.12 - Left upper quadrant pain Nausea & vomiting Qualifiers: Vomiting type: unspecified Vomiting Intractability: unspecified Qualified Code(s): R11.2 - Nausea with vomiting, unspecified UTI (urinary tract infection) Qualifiers: Urinary tract infection type: site unspecified Hematuria presence: with hematuria Qualified Code(s): N39.0 - Urinary tract infection, site not spec ified; R31.9 - Hematuria, unspecified Condition: Good Disposition: HOME, SELF-CARE Instructions: Abdominal Pain ([facility]), Vomiting ([facility]), Urinary Tract Infection ([facility]) Additional Instructions: You have been seen in the Emergency Department (ED) for abdominal pain. Your evaluation did not identify a clear cause of your symptoms but was generally reassuring. Please follow up with your doctor as soon as possible regarding today's emergent visit and the symptoms that are bothering you. Return to the ED if your abdominal pain worsens or fails to improve, you develop bloody vomiting, bloody diarrhea, you are unable to tolerate fluids due to vomiting, fever greater than 101, or other symptoms that concern you. Prescriptions: Dicyclomine HCl [Bentyl 20 mg Tablet] 20 mg PO QID #16 tablet Famotidine [Pepcid 40 mg Tablet] 40 mg PO DAILY 10 Days #10 tablet Ondansetron [Zofran Odt 4 mg Tablet] 1 - 2 tab PO Q4H PRN #15 tab.rapdis PRN Reason: For Nausea/Vomiting Forms: Elevated Blood Pressure, Return to Work Referrals: ANDREW GONZALEZ PA-C [Primary Care Provider] - Follow up as needed
[2019-08-05] MEDS ORDERED: HYDROMORPHONE HCL INJ/PF 2 MG/ML AMPULE IV ONE ×2 (14:15→14:55)
--- NOTE | 2019-08-05 14:31 | RADIOLOGY REPORT (SQ) ---
EXAM DESCRIPTION: CT ABD/PELVIS WITH IV ONLY COMPLETED DATE/TIME: 08/05/2019 2:10 pm REASON FOR STUDY: epigastric abdominalpain COMPARISON: 04/04/2019 TECHNIQUE: CT scan of the abdomen and pelvis performed using helical scanning technique with dynamic intravenous contrast injection. No oral contrast. Images reviewed with lung, soft tissue, and bone windows. Reconstructed coronal and sagittal MPR images reviewed. Delayed images for evaluation of the urinary system also acquired. All images stored on PACS. All CT scanners at this facility use dose modulation, iterative reconstruction, and/or weight based d osing when appropriate to reduce radiation dose to as low as reasonably achievable (ALARA). [facility]: Dose Right [facility]: CareDose [facility]: Dose Right [facility]: Teradose 4D [facility]: Interactive Advisory Software CONTRAST TYPE AND DOSE: contrast/concentration: Isovue 350.00 mg/ml; Total Contrast Delivered: 94.0 ml; Total Saline Delivered: 72.0 ml RENAL FUNCTION: GFR > 60. RADIATION DOSE: CT Rad equipment meets quality standard of care and radiation dose reduction techniq ues were employed. CTDIvol: 13.2 - 16.4 mGy. DLP: 1497 mGy-cm.. LIMITATIONS: None. FINDINGS: LOWER CHEST: No significant findings. No nodules or infiltrates. LIVER: Normal size. No masses. No dilated ducts. SPLEEN: Normal size. No focal lesions. PANCREAS: No masses. No significant calcifications. No adjacent inflammation or peripancreatic fluid collections. Pancreatic duct not dilated. GALLBLADDER: Surgically absent. ADRENAL GLANDS: No significant masses or asymmetry. RIGHT KIDNEY AND URETER: No solid masses. No significant calcifications. No hydronephrosis or hyd roureter. LEFT KIDNEY AND URETER: No solid masses. No significant calcifications. No hydronephrosis or hydr oureter. AORTA AND VESSELS: No aneurysm. No dissection. Renal arteries, SMA, celiac without stenosis. RETROPERITONEUM: No retroperitoneal adenopathy, hemorrhage or masses. BOWEL AND PERITONEAL CAVITY: No masses or inflammatory changes. No free fluid or peritoneal masses. APPENDIX: Not visualized. PELVIS: No mass. No free fluid. Normal bladder. ABDOMINAL WALL: Linear metallic density in the upper anterior abdominal wall. BONES: No significant or acute findings. OTHER: No other significant finding. IMPRESSION: 1. No acute findings in the abdomen or pelvis. 2. Metal foreign body in the anterior abdominal wall. TECHNICAL DOCUMENTATION: JOB ID: [id number] Quality ID # [id number]: Final reports with documentation of one or more dose reduction techniques (e.g., Au tomated exposure control, adjustment of the mA and/or kV according to patient size, use of iterative reconstruction technique) 2010 [employer]- All Rights Reserved Reading location - IP/workstation name: [email or web address]
[2019-08-05] MEDS ORDERED: DICYCLOMINE HCL 20 MG TABLET PO ONE (14:55)
[2019-08-05 15:41] VITALS: BP 129/74
--- NOTE | 2019-08-05 15:42 | EKG REPORT ---
SEVERITY:- ABNORMAL ECG - SINUS TACHYCARDIA MULTIPLE VENTRICULAR PREMATURE COMPLEXES BORDERLINE PROLONGED QT INTERVAL : Confirmed by: Josef Barriga MD 05-Aug-2019 15:41:15
== END 2019-08-05 15:40 | disposition home or self-care (01) ==
LOC: ER 11:22
DX: N39.0 Urinary tract infection, site not specified (principal); R31.9 Hematuria, unspecified; R11.2 Nausea with vomiting, unspecified; R10.12 Left upper quadrant pain; R10.13 Epigastric pain; R10.816 Epigastric abdominal tenderness; R10.812 Left upper quadrant abdominal tenderness; R50.9 Fever, unspecified; Z87.19 Personal history of other diseases of the digestive system; Z88.1 Allergy status to other antibiotic agents; Z90.49 Acquired absence of other specified parts of digestive tract
CPT/HCPCS: 93005; 96376; 99284; 96361; 96374; 96375; 36415; 87040; 87086; 83690; 84703; 85025; 80053; 81001; 82803; 83605; 74177; 93010; J3490; J3010; J1170; J2405; J7030

== ENCOUNTER 2019-09-18 10:25 | Emergency (ER) | payer OTHER, MEDICAID ==
[2019-09-18 10:39] VITALS: BP 143/94
--- NOTE | 2019-09-18 10:40 | ER Document Report ---
ED Medical Screen (RME) - General Chief Complaint: Pain All Over Stated Complaint: STOMACH PAIN Time Seen by Provider: 09/18/19 10:29 Primary Care Provider: ANDREW GONZALEZ PA-C [Primary Care Provider] - Follow up as needed Mode of Arrival: Ambulatory Information source: Patient Notes: 34-year-old female presented to ED for complaint of pain all over. While she was getting her vital signs her pulse was 117-126. I did stop to listen at her apical pulse and it was very irregular. I did request the tech to go and get a EKG promptly. The x-ray did show multiple PVCs on the EKG. I have ordered a cardiac work-up which will include CBC and chemistry which is what she needs for her pain all over with her necrotizing abscess in her abdomen. She had pancreatitis they tried to put a feeding tube in because the pancreas was necrotic. They were unable to put the feeding tube in and is to put in a Zayas gave her TPN until she was able to eat. The feeding tube site did not heal and is now formed an abscess. Patient states that [place] [facility] states there are metal fragments in the abdominal abscess. I have greeted and performed a rapid initial assessment of this patient. A comprehensive ED assessment and evaluation of the patient, analysis of test results and completion of medical decision making process will be conducted by an additional ED providers. TRAVEL OUTSIDE OF THE [place] IN LAST 30 DAYS: No COUNTRY TRAVELED TO/FROM: [facility] - Related Data Allergies/Adverse Reactions: ceftriaxone [From Rocephin] Allergy (Verified 09/18/19 10:37) Past Medical History - Past Medical History Cardiac Medical History: Reports: Hx Atrial Fibrillation Denies: Hx Congestive Heart Failure, Hx Coronary Artery Disease, Hx DVT, Hx Heart Attack, Hx Hypercholesterolemia, Hx Hypertension, Hx Peripheral Vascular Disease, Hx Pulmonary Embolism, Hx Heart Murmur Pulmonary Medical History: Denies: Hx Asthma, Hx Bronchitis, Hx COPD, Hx Pneumonia, Hx Intubation, Hx Respiratory Failure, Hx Sleep Apnea, Hx Tuberculosis Neurological Medical History: Denies: Hx Migraine, Hx Seizures Endocrine Medical History: Denies: Hx Diabetes Mellitus Type 1, Hx Diabetes Mellitus Type 2, Hx Hyperthyroidism, Hx Hypothyroidism Renal/ Medical History: Denies: Hx End Stage Renal Disease, Hx Peritoneal Dialysis Malignancy Medical History: Denies: Hx Bone Cancer, Hx Brain Cancer, Hx Breast Cancer, Hx Cervical Cancer, Hx Colorectal Cancer, Hx Leukemia, Hx Liver Cancer, Hx Lung Cancer, Hx Lymphoma, Hx Ovarian Cancer, Hx Pancreatic Cancer, Hx Renal (Kidney) Cancer, Hx Skin Cancer GI Medical History: Denies: Hx Ulcerative Colitis Musculoskeltal Medical History: Denies Hx Arthritis, Denies Hx Fibromyalgia, Denies Hx Gout Psychiatric Medical History: Denies: Hx Attention Deficit Hyperactivity Disorder, Hx Bipolar Disorder, Hx Dementia, Hx Depression, Hx Personality Disorder, Hx Post Traumatic Stress Disorder, Hx Schizoaffective Disorder Infectious Medical History: Denies: Hx C-Diff, Hx HIV, Hx MRSA, Hx VRE Past Surgical History: Reports: Hx Abdominal Surgery - pancreatic pseudocyst drain, Hx Cholecystectomy, Hx Orthopedic Surgery - low back, nose, Hx Vascular Surgery - zayas placement - Immunizations Hx Diphtheria, Pertussis, Tetanus Vaccination: Yes - 2005 Doctor's Discharge - Discharge Referrals: ANDREW GONZALEZ PA-C [Primary Care Provider] - Follow up as needed
[2019-09-18 11:06] LABS: ABSOLUTE BASOPHILS # (AUTO) 0.1 10^3/uL (0.0-0.2); ABSOLUTE EOSINOPHILS # (AUTO) 0.2 10^3/uL (0.0-0.6); ABSOLUTE LYMPHOCYTES (AUTO) 3.2 10^3/uL (0.5-4.7); ABSOLUTE MONOCYTES (AUTO) 0.4 10^3/uL (0.1-1.4); BASOPHILS % (AUTO) 0.5 % (0-2); HEMATOCRIT 33.5 % (36.0-47.0); HEMOGLOBIN 10.7 g/dL (12.0-15.5); LYMPHOCYTES % (AUTO) 29.3 % (13-45); MEAN CORPUSCULAR HEMOGLOBIN 24.6 pg (27.0-33.4); MEAN CORPUSCULAR HGB CONC 31.8 g/dL (32.0-36.0); MEAN CORPUSCULAR VOLUME 77 fl (80-97); MONOCYTES % (AUTO) 3.8 % (3-13); PLATELET COUNT 402 10^3/uL (150-450); RED BLOOD COUNT 4.34 10^6/uL (3.72-5.28); RED CELL DISTRIBUTION WIDTH 16.3 % (11.5-14.0); SEGMENTED NEUTROPHILS % (AUTO) 64.4 % (42-78); TOTAL CELLS COUNTED % (AUTO) 100 %; WHITE BLOOD COUNT 10.8 10^3/uL (4.0-10.5)
[2019-09-18] MEDS ORDERED: MORPHINE SULFATE 10 MG/ML INJ IV ONE ×2 (11:08→14:17)
[2019-09-18] MEDS ORDERED: ONDANSETRON HCL INJ/PF 4 MG/2 ML SDV IV ONE (11:08)
[2019-09-18] MEDS ORDERED: NORMAL SALINE 1000 ML 1,000 ML IV ONE (11:11)
[2019-09-18 11:23] LABS: APPEARANCE,URINE SLIGHTLY-CLOUDY; BILIRUBIN,URINE NEGATIVE (NEGATIVE); COLOR,URINE YELLOW; GLUCOSE, URINE >=500 mg/dL (NEGATIVE); KETONES,URINE NEGATIVE (NEGATIVE); PROTEIN,URINE NEGATIVE (NEGATIVE); URINE SPECIFIC GRAVITY 1.024; UROBILINOGEN,URINE NEGATIVE mg/dL (<2.0)
[2019-09-18] MEDS ORDERED: METOCLOPRAMIDE HCL ORAL SOLN 10 MG/10 ML UDCUP PO ONE (11:24)
[2019-09-18] MEDS ORDERED: MAG HYDROX/AL HYDROX/SIMETH SUSP 30 ML UDCUP PO ONE (11:24)
[2019-09-18] MEDS ORDERED: LIDOCAINE 2% VISCOUS SOLN 20 ML UDCUP PO ONE (11:24)
--- NOTE | 2019-09-18 11:24 | ER Document Report ---
ED General Pain - General Chief Complaint: Pain All Over Stated Complaint: STOMACH PAIN Time Seen by Provider: 09/18/19 10:29 Primary Care Provider: ANDREW GONZALEZ PA-C [PHYSICIAN NURSING PROFESSOR] - Follow up as needed Mode of Arrival: Ambulatory Notes: 34-year-old female history of chronic pancreatitis presents to the ER with abdominal pain. Patient has had issues with her pancreas on and off. She is due to have surgery to remove metal fragments in her abdomen. The patient otherwise has been having 1 of her pancreatitis exacerbations she denies any alcohol use. She denies any fever chills cough or sore throat. Eyes any falls or trauma denies illicit drug use. Describes the pain as burning and severe in her epigastrium. TRAVEL OUTSIDE OF THE [place] IN LAST 30 DAYS: No COUNTRY TRAVELED TO/FROM: [facility] - Related Data Allergies/Adverse Reactions: ceftriaxone [From Rocephin] Allergy (Verified 09/18/19 10:39) Past Medical History - General Information source: Patient - Social History Smoking Status: Never Smoker Chew tobacco use (# tins/day): No Frequency of alcohol use: Social Drug Abuse: None Family History: Reviewed & Not Pertinent Patient has suicidal ideation: No Patient has homicidal ideation: No - Past Medical History Cardiac Medical History: Reports: Hx Atrial Fibrillation Denies: Hx Congestive Heart Failure, Hx Coronary Artery Disease, Hx DVT, Hx Heart Attack, Hx Hypercholesterolemia, Hx Hypertension, Hx Peripheral Vascular Disease, Hx Pulmonary Embolism, Hx Heart Murmur Pulmonary Medical History: Denies: Hx Asthma, Hx Bronchitis, Hx COPD, Hx Pneumonia, Hx Intubation, Hx Respiratory Failure, Hx Sleep Apnea, Hx Tuberculosis Neurological Medical History: Denies: Hx Migraine, Hx Seizures Endocrine Medical History: Denies: Hx Diabetes Mellitus Type 1, Hx Diabetes Mellitus Type 2, Hx Hyperthyroidism, Hx Hypothyroidism Renal/ Medical History: Denies: Hx End Stage Renal Disease, Hx Peritoneal Dialysis Malignancy Medical History: Denies: Hx Bone Cancer, Hx Brain Cancer, Hx Breast Cancer, Hx Cervical Cancer, Hx Colorectal Cancer, Hx Leukemia, Hx Liver Cancer, Hx Lung Cancer, Hx Lymphoma, Hx Ovarian Cancer, Hx Pancreatic Cancer, Hx Renal (Kidney) Cancer, Hx Skin Cancer GI Medical History: Denies: Hx Ulcerative Colitis Musculoskeletal Medical History: Denies Hx Arthritis, Denies Hx Fibromyalgia, Denies Hx Gout Psychiatric Medical History: Denies: Hx Attention Deficit Hyperactivity Disorder, Hx Bipolar Disorder, Hx Dementia, Hx Depression, Hx Personality Disorder, Hx Post Traumatic Stress Disorder, Hx Schizoaffective Disorder Infectious Medical History: Denies: Hx C-Diff, Hx HIV, Hx MRSA, Hx VRE Past Surgical History: Reports: Hx Abdominal Surgery - pancreatic pseudocyst drain, Hx Cholecystectomy, Hx Orthopedic Surgery - low back, nose, Hx Vascular Surgery - zayas placement - Immunizations Hx Diphtheria, Pertussis, Tetanus Vaccination: Yes - 2005 Review of Systems - Review of Systems Constitutional: denies: Chills, Fever Gastrointestinal: Abdominal pain, Nausea. denies: Vomiting Genitourinary: denies: Burning -: Yes All other systems reviewed and negative Physical Exam - Vital signs Vitals: Temp Pulse Resp BP Pulse Ox 97.8 F 121 H 18 143/94 H 100 09/18/19 10:28 09/18/19 10:28 09/18/19 10:28 09/18/19 10:28 09/18/19 10:28 - Notes Notes: GENERAL_APPEARANCE: well_nourished, alert, cooperative, appears uncomfortable VITALS: reviewed, see vital signs table. HEAD: no_swelling\tenderness on the head. EYES: PERRL, EOMI, conjunctiva_clear. NOSE: no_nasal_discharge. MOUTH: (-)decreased moisture. THROAT: no_tonsilar_inflammation, no_airway_obstruction. no_lymphadenopathy NECK: supple, no_neck_tenderness, (-)thyromegaly. BACK: no_back_tenderness. CHEST_WALL: no_chest_tenderness. LUNGS: no_wheezing, no_rales, no_rhonchi, (-)accessory muscle use, good air exchange bilateral. HEART: normal_rate, normal_rhythm, normal_S1, normal_S2, (-)S3, (-)S4, no_murmur, no_rub. ABDOMEN: normal_BS, soft, gastric_abd_tenderness, (-)guarding, (-)rebound, no_organomegaly, no_abd_masses. EXTREMITIES:good pulses in all_extremities, no_swelling\tenderness in the extremities, no_edema. SKIN: warm, dry, good_color, no_rash. MENTAL_STATUS: speech_clear, oriented_X_3, normal_affect, res ponds_appropriately to questions. Course - Re-evaluation Re-evalutation: 09/18/19 11:23 34-year-old female with a history of chronic pancreatitis presents with epigastric pain. We will give the patient pain and nausea medicine we will check some generalized labs she just recently had a CT. The patient is due to have surgery next month to remove some metal fragments from her abdomen. 09/18/19 14:18 Patient is feeling a bit better. She did ask for an additional dose of pain medicine before going. She has a surgery scheduled next month. Nothing to suggest significant sepsis or other abnormalities there is no peritoneal signs on evaluation lipase is normal. Discharge the patient. - Vital Signs Vital signs: Temp Pulse Resp BP Pulse Ox 97.8 F 121 H 18 143/94 H 100 09/18/19 10:28 09/18/19 10:28 09/18/19 10:28 09/18/19 10:28 09/18/19 10:28 - Laboratory Result Diagrams: 09/18/19 10:50 09/18/19 10:50 Laboratory results interpreted by me: 09/18/19 09/18/19 09/18/19 10:50 10:50 10:50 WBC 10.8 H Hgb 10.7 L Hct 33.5 L MCV 77 L MCH 24.6 L MCHC 31.8 L RDW 16.3 H Glucose 256 H AST 13 L Alkaline Phosphatase 138 H Urine Glucose (UA) >=500 H Urine Blood LARGE H Discharge - Discharge Clinical Impression: Pancreatitis Qualifiers: Chronicity: acute Pancreatitis type: unspecified pancreatitis type Acute pancreatitis complication: unspecified Qualified Code(s): K85.90 - Acute pancreatitis without necrosis or infection, unspecified Condition: Good Disposition: HOME, SELF-CARE Instructions: Pancreatitis ([facility]) Prescriptions: Famotidine [Pepcid 40 mg Tablet] 40 mg PO QHS #30 tablet Ondansetron [Zofran Odt 4 mg Tablet] 1 - 2 tab PO Q4H PRN #15 tab.rapdis PRN Reason: For Nausea/Vomiting Referrals: ANDREW GONZALEZ PA-C [PHYSICIAN NURSING PROFESSOR] - Follow up as needed
[2019-09-18 11:28] LABS: ALKALINE PHOSPHATASE 138 U/L (38-126); ANION GAP 10 (5-19); ASPARTATE AMINO TRANSFERASE 13 U/L (14-36); BILIRUBIN,DIRECT 0.1 mg/dL (0.0-0.4); BILIRUBIN,TOTAL 0.4 mg/dL (0.2-1.3); BLOOD UREA NITROGEN 13 mg/dL (7-20); CALCIUM 9.4 mg/dL (8.4-10.2); CARBON DIOXIDE 26 mmol/L (22-30); CHLORIDE 102 mmol/L (98-107); GLUCOSE 256 mg/dL (75-110); POTASSIUM 4.2 mmol/L (3.6-5.0); TOTAL PROTEIN 7.5 g/dL (6.3-8.2)
--- NOTE | 2019-09-18 18:27 | EKG REPORT ---
SEVERITY:- ABNORMAL ECG - SINUS TACHYCARDIA MULTIPLE VENTRICULAR PREMATURE COMPLEXES : Confirmed by: Miguel Angel Hernandez 18-Sep-2019 18:26:41
== END 2019-09-18 15:01 | disposition home or self-care (01) ==
LOC: ER 10:25
DX: K85.90 Acute pancreatitis without necrosis or infection, unspecified (principal); R10.13 Epigastric pain; M79.10 Myalgia, unspecified site
CPT/HCPCS: 93005; 96376; 99284; 96361; 96374; 96375; 36415; 83690; 84703; 85025; 80053; 81001; 84484; 93010; J3490; J2270; J2405; J7030

== ENCOUNTER 2019-09-26 10:30 | Observation (INO) | payer MEDICAID, OTHER ==
[2019-09-24 10:33] LABS: HEMATOCRIT 32.9 % (36.0-47.0); HEMOGLOBIN 10.4 g/dL (12.0-15.5); MEAN CORPUSCULAR HEMOGLOBIN 24.5 pg (27.0-33.4); MEAN CORPUSCULAR HGB CONC 31.5 g/dL (32.0-36.0); MEAN CORPUSCULAR VOLUME 78 fl (80-97); PLATELET COUNT 387 10^3/uL (150-450); RED BLOOD COUNT 4.23 10^6/uL (3.72-5.28); RED CELL DISTRIBUTION WIDTH 15.4 % (11.5-14.0); WHITE BLOOD COUNT 12.5 10^3/uL (4.0-10.5)
[2019-09-24 10:58] LABS: ANION GAP 9 (5-19); BLOOD UREA NITROGEN 11 mg/dL (7-20); CALCIUM 9.7 mg/dL (8.4-10.2); CARBON DIOXIDE 29 mmol/L (22-30); CHLORIDE 100 mmol/L (98-107); GLUCOSE 260 mg/dL (75-110); POTASSIUM 4.4 mmol/L (3.6-5.0)
[~2019-09-26 10:30] MED LIST: CEFAZOLIN SODIUM 1 GM in DEXTROSE 5%-WATER 50 ML IV PRN; DEXTROSE 5%-LACTATED RINGERS 1,000 ML IV PRN; LACTATED RINGERS 1000 ML IV PRN; LIDOCAINE 0.5% INJ-PF (5 MG/ML) 50 ML SDV SUBCUT PRN
[2019-09-26] MEDS ORDERED: FENTANYL CITRATE INJ/PF 100 MCG/2 ML AMPUL ONE (13:15)
[2019-09-26] MEDS ORDERED: MIDAZOLAM 2 MG/2 ML INJ ONE (13:16)
[2019-09-26] MEDS ORDERED: PROPOFOL INJ 200 MG/20 ML VIAL IV ONE ×2 (13:16→13:52)
[2019-09-26] MEDS ORDERED: ONDANSETRON HCL INJ/PF 4 MG/2 ML SDV ONE (13:17)
[2019-09-26] MEDS ORDERED: LIDOCAINE 0.5% INJ-PF (5 MG/ML) 50 ML SDV ONE (13:29)
[2019-09-26] MEDS ORDERED: BUPIVACAINE HCL 0.25 % INJ/PF (2.5 MG/1 ML) 30 ML VIAL ONE (13:29)
[2019-09-26] MEDS ORDERED: LIDOCAINE 0.5% INJ-PF (5 MG/ML) 50 ML SDV INJ ONE (13:59)
--- NOTE | 2019-09-26 14:13 | Discharge Summary ---
Discharge Summary (SDC) - Discharge Final Diagnosis: 1. Abscess anterior abdominal wall 2. Retained foreign body abdominal wall and stomach Date of Surgery: 09/26/19 Discharge Date: 09/26/19 Condition: Good Treatment or Instructions: Start dressing changes, once a day, with 2 x 2 gauze moist saline, cover with dry gauze. Follow-up with [facility] in 1 to 2 weeks. Stay on clear liquids for 1 day Referrals: RONNI HODGES MD [Primary Care Provider] - Discharge Diet: As Tolerated Discharge Activity: Activity As Tolerated Home Care Assistance: None Needed Report the Following to Your Physician Immediately: Shortness of Breath, Increase in Pain
[2019-09-26] MEDS: FENTANYL CITRATE INJ/PF 100 MCG/2 ML AMPUL ONE ×2 (14:21→14:26)
[2019-09-26] MEDS ORDERED: DIPHENHYDRAMINE HCL 50 MG/ML VIAL IV PRN (14:22)
[2019-09-26] MEDS ORDERED: PROMETHAZINE HCL INJ 25 MG/1 ML VIAL IV PRN ×2 (14:22)
[2019-09-26] MEDS ORDERED: FENTANYL CITRATE INJ/PF 100 MCG/2 ML AMPUL IV PRN ×3 (14:22)
[2019-09-26] MEDS ORDERED: OXYCODONE-ACETAMINOPHEN 5-325 MG TABLET PO PRN ×2 (14:22)
[2019-09-26] MEDS ORDERED: MEPERIDINE HCL/PF INJ 25 MG/1 ML DISP.SYRIN IV PRN (14:22)
--- NOTE | 2019-09-26 14:24 | Operative Report ---
Operative Report DATE OF SURGERY: 09/26/19 PREOPERATIVE DIAGNOSIS: 1. History of pancreatitis. 2. Left upper quadrant i ntra-abdominal wall abscess with foreign body retained. 3. Retained foreign body of the stomach POSTOPERATIVE DIAGNOSIS: Same OPERATION: 1. Esophagogastroduodenoscopy with removal of gastric component of foreign body. 2. Anterior abdominal wall debridement, with removal of subcutaneous component of foreign body SURGEON: LUCÍA GUTIERREZ ANESTHESIA: LMAC TISSUE REMOVED OR ALTERED: Necrotic skin and subcutaneous tissue; foreign body x2 COMPLICATIONS: None INTRAOPERATIVE FINDINGS: See below PROCEDURE: Patient was taken to the main operating room where LMA anesthesia was induced. Surgical plan surgical timeout conducted. The plan was to perform EGD, and attempted foreign body removal. Second portion of the operation was to debride the anterior abdominal wall with foreign body removal from the subcutaneous space. This was based on preoperative CT scan imaging showing retained foreign body within the gastric lumen, and subcutaneous tissues of the left upper quadrant abdominal wall. Appropriate level of LMAC anesthesia was induced. The flexible upper endoscope was inserted into the hypopharynx, through the esophagus into the stomach and into the first and second portion of the duodenum. The upper endoscopic evaluation was normal except for the absence of retained foreign body in the stomach, greater curve, which consisted of a centimeter semi-rigid metallic component, attached to a filamentous line in a T- like fashion. It was photographed, and felt to be consistent with the foreign body seen on CT scan. In retrospect it appears that the patient had a foreign body in the stomach, connected to the component in the intra-abdominal wall consistent with retained threading apparatus from an attempted feeding tube insertion earlier in 2019. Multiple attempts were made to remove the gastric component, however the fibrous line going into the anterior gastric wall would not release. Multiple attempts were made to bite through the line with biopsy forceps but these were unsuccessful. Therefore we aborted this approach and remove the upper endoscope. We then prepped the anterior abdominal wall, Yakelin ties the draining site in the left upper quadrant with a 1% plain lidocaine, and proceeded to excise the chronic draining site at the skin level. A hole was created approximately 2-1/2 cm in diameter. This included the skin and subcutaneous tissue. Using a Una wound, I was able to retrieve the subcutaneous foreign body, consistent with the exterior component of the thReading apparatus. This consisted of the 2 cm semi-firm metallic component, as well as the fibrous line attached to it. Several centimeters of line was removed. Dissection did not extend beneath the fascia. The cavity approximately 2 x 2 x 3 cm was irrigated with saline, packed with gauze sponge. At this point I felt that the austen wall debridement component of the procedure was complete, successful removal of the foreign body subcutaneous space. We now repeated the upper endoscopy. Because of patient's body habitus, and redundant hypopharyngeal tissue, her respiratory effort was somewhat challenged, but with appropriate oxygenation by anesthesia, patient maintained her saturations. The upper endoscope was reinserted into the hypopharynx, into the esophagus, and now back into the stomach. At this time, the retained gastric foreign body was floating as the connecting line had been severed from the abdominal wall debridement. The foreign body was grabbed with the cold forceps device and brought out with the esophagoscope. Unfortunately it did get hung up in the esophagus and we lost it from forceps. The scope was withdrawn from the patient's oropharynx, and improvements were made in the patient's ventilation and respirations. We reinserted the esophagoscope for the third time, and there was a mild amount of bleeding and active secretions from the esophagus. The foreign body was successfully grasped the mid esophageal level, and brought out of the patient's esophagus with the scope, with the foreign body intact. Both and body components were sent to pathology. We did not re-scope the patient because of the challenges with the airway previously described. We felt the operation was complete. There was no significant emesis. She did tolerate the procedure well, taken recovery in stable condition.
[2019-09-26] MEDS ORDERED: ACETAMINOPHEN 1,000 MG/100 ML RTUPB IV ONE (14:33)
[2019-09-26] MEDS: MORPHINE SULFATE 10 MG/ML INJ ONE ×3 (14:39→14:49)
[2019-09-26] MEDS ORDERED: KETOROLAC TROMETHAMINE INJ/PF 30 MG/1 ML SDV ONE (14:57)
[2019-09-26] MEDS ORDERED: MORPHINE SULFATE 10 MG/ML INJ ONE (15:19)
[2019-09-26] MEDS: HYDROMORPHONE HCL INJ/PF 2 MG/ML AMPULE ONE ×5 (15:45→16:35)
--- NOTE | 2019-09-26 16:23 | RADIOLOGY REPORT (SQ) ---
EXAM DESCRIPTION: CHEST SINGLE VIEW COMPLETED DATE/TIME: 09/26/2019 4:13 pm REASON FOR STUDY: post op COMPARISON: 05/27/2019 EXAM PARAMETERS: NUMBER OF VIEWS: One view. TECHNIQUE: Single frontal radiographic view of the chest acquired. RADIATION DOSE: NA LIMITATIONS: None. FINDINGS: LUNGS AND PLEURA: No opacities, masses or pneumothorax. No pleural effusion. MEDIASTINUM AND HILAR STRUCTURES: No masses. Contour normal. HEART AND VASCULAR STRUCTURES: Borderline cardiomegaly suggested. Normal vasculature. BONES: No acute findings. HARDWARE: None in the chest. OTHER: No other significant finding. IMPRESSION: 1. No acute pulmonary findings. TECHNICAL DOCUMENTATION: JOB ID: [id number] [employer]- All Rights Reserved Reading location - IP/workstation name: [email or web address]
[2019-09-26] MEDS ORDERED: ONDANSETRON HCL INJ/PF 4 MG/2 ML SDV IV PRN (16:36)
--- NOTE | 2019-09-26 16:46 | RADIOLOGY REPORT (SQ) ---
EXAM DESCRIPTION: UGI SERIES COMPLETED DATE/TIME: 09/26/2019 4:35 pm REASON FOR STUDY: Rule out esophageal perforation R10.12 LEFT UPPER QUADRANT PAIN L02.211 CUTANEOU S ABSCESS OF ABDOMINAL WALL COMPARISON: None. TECHNIQUE: Under fluoroscopic guidance, patient ingested water-soluble contrast. Fluoroscopic spot i mages and routine radiographic images acquired and stored on PACS. 12 MM BARIUM TABLET GIVEN: No LIMITATIONS: None. FLUOROSCOPY TIME: FLUORO TIME: 1.4 minutes 9 images saved to PACS. FINDINGS: NEUROMUSCULAR COORDINATION OF SWALLOW: Normal. No aspiration. ESOPHAGEAL MOTILITY: Normal peristalsis. No esophageal spasm. ESOPHAGEAL MUCOSA: Normal mucosa without masses or ulceration. No evidence for contrast extravasatio n. GASTRO-ESOPHAGEAL JUNCTION: Small hiatal hernia present. No gastroesophageal reflux. STOMACH: Normal without masses or ulcerations. GASTRIC OUTLET: No delay in emptying. Normal pylorus. DUODENAL BULB: Normal distention. No spasm or ulceration. DUODENUM: Mucosa normal. No extrinsic masses or malrotation. PROXIMAL JEJUNUM: Normal mucosal pattern. No dilatation, segmentation, strictures or masses. NON-GI TRACT STRUCTURES: No significant finding. OTHER: No other significant finding. IMPRESSION: NO EVIDENCE FOR CONTRAST EXTRAVASATION IN THE ESOPHAGUS OR STOMACH. SMALL HIATAL HERNIA . OTHERWISE UNREMARKABLE STUDY. COMMENT: None Quality ID [id number]: Final reports for procedures using fluoroscopy that document radiation exposure ese melinda, or exposure time and number of fluorographic images (if radiation exposure indices are not avail able) TECHNICAL DOCUMENTATION: JOB ID: [id number] [employer]- All Rights Reserved Reading location - IP/workstation name: [email or web address] [id number]
--- NOTE | 2019-09-26 16:47 | PDOC PROGRESS REPORT ---
Subjective Progress Note for:: 09/26/19 Reason For Visit: R10.12 LEFT UPPER QUADRANT PAIN Patient is admitted overnight for observation. She underwent upper endoscopy, removal of foreign body, abdominal wall debridement and removal of abdominal wall foreign body. During scopic extraction of the retained foreign body in the stomach, patient sustained esophageal mucosal tear some bleeding. The procedure was done under LMAC anesthesia, which she tolerated well. Postoperatively the recovery room she had pain refractory to narcotic management, persisting tachycardia. She had a chest x-ray which was unremarkable, then underwent Gastrografin swallow which showed no evidence of esophageal leak. She is being admitted for observation. Physical Exam Vital Signs: Temp Pulse Resp BP Pulse Ox 98.5 F 113 H 16 150/87 H 98 09/26/19 14:12 09/26/19 15:42 09/26/19 15:42 09/26/19 15:42 09/26/19 15:42 Intake & Output 09/25/19 09/26/19 09/27/19 06:59 06:59 06:59 Intake Total 700 Output Total 2 Balance 698 Weight 95.25 kg General appearance: PRESENT: mild distress Respiratory exam: PRESENT: clear to auscultation musa - But diminished in the bases bilaterally GI/Abdominal exam: PRESENT: other - Operative site left upper quadrant dressing dry: Appropriate abdominal tenderness. Results Laboratory Results: 09/24/19 09:24 09/24/19 09:24 Impressions: Chest X-Ray 09/26/19 00:00 IMPRESSION: 1. No acute pulmonary findings. Assessment & Plan - Diagnosis (1) Abdominal pain Is this a current diagnosis for this admission?: Yes Plan: Impression: Postoperative abdominal pain, tachycardia, likely related to today's surgery, all debridement, and multiple endoscopic manipulations for foreign body removal. Diagnostic a chest x-ray and Gastrografin swallow demonstrated no free air, esophageal leak. Recommendations: 1. We will admit patient for observation keep on ice chips and provide pain management. Orders have been written 2. I have explained the rationale for the admission patient significant other., and observation status. (2) Abdominal wall abscess at site of surgical wound Is this a current diagnosis for this admission?: Yes Plan: Impression: Status post successful debridement of anterior abdominal wall wound, with foreign body removal (3) Retained foreign body Is this a current diagnosis for this admission?: Yes Plan: Impression: Patient status post endoscopic foreign body removal from the stomac h, and operative debridement of anterior abdominal wall with foreign body removal (4) History of pancreatitis Is this a current diagnosis for this admission?: Yes - Time Time Spent with patient: 15-24 minutes Smoking Cessation Education: over 10 minutes Medications reviewed and adjusted accordingly: No - Inpatient Certification Based on my medical assessment, after consideration of the patient's comorbidities, presenting symptoms, or acuity I expect that the services needed warrant INPATIENT care.: Yes I certify that my determination is in accordance with my understanding of Medicare's requirements for reasonable and necessary INPATIENT services [42 CFR 412.3e].: Yes Medical Necessity: Need For IV Fluids, Need for IV Antibiotics, Need for Surgery
[2019-09-26] MEDS: RINGERS SOLUTION,LACTATED 1,000 ML IV PRN ×2 (17:53→23:34)
[2019-09-26] MEDS: KETOROLAC TROMETHAMINE 10 MG TABLET PO PRN (20:18)
[2019-09-26] MEDS ORDERED: HYDROMORPHONE HCL INJ/PF 2 MG/ML AMPULE ONE (23:29)
[2019-09-26] MEDS ORDERED: HYDROMORPHONE HCL INJ/PF 2 MG/ML AMPULE IV ONE (23:45)
--- NOTE | 2019-09-27 06:46 | PDOC PROGRESS REPORT ---
Subjective Progress Note for:: 09/27/19 Reason For Visit: R10.12 LEFT UPPER QUADRANT PAIN Physical Exam Vital Signs: Temp Pulse Resp BP Pulse Ox 97.7 F 100 19 126/74 H 98 09/26/19 22:45 09/26/19 22:45 09/26/19 22:45 09/26/19 22:45 09/26/19 22:45 Intake & Output 09/25/19 09/26/19 09/27/19 06:59 06:59 06:59 Intake Total 2832 Output Total 502 Balance 2330 Weight 94.8 kg Results Laboratory Results: 09/24/19 09:24 09/24/19 09:24 Impressions: Chest X-Ray 09/26/19 00:00 IMPRESSION: 1. No acute pulmonary findings. Upper GI Series 09/26/19 15:42 IMPRESSION: NO EVIDENCE FOR CONTRAST EXTRAVASATION IN THE ESOPHAGUS OR STOMACH. SMALL HIATAL HERNIA. OTHERWISE UNREMARKABLE STUDY. Assessment & Plan - Diagnosis (1) Abdominal wall abscess at site of surgical wound Is this a current diagnosis for this admission?: Yes (2) Retained foreign body Is this a current diagnosis for this admission?: Yes - Time Time Spent with patient: Less than 15 minutes - Plan Summary Plan Summary: This is a 34-year-old female with extraction of a foreign body from the lumen of the stomach, debridement of the abdominal wall, and extraction of foreign body from the subcutaneous tissues of the abdominal wall. There was some concern for damage of the esophagus during the case, however chest x-ray and Gastrografin Swallow failed to show any evidence of damage or perforation. The patient has done reasonably well overnight. She has been afebrile. I will start her on clear liquids today. Continue with close observation.
[2019-09-27] MEDS: KETOROLAC TROMETHAMINE 10 MG TABLET PO PRN ×3 (08:32→21:48)
--- NOTE | 2019-09-27 10:21 | PDOC PROGRESS REPORT ---
Subjective Progress Note for:: 09/27/19 Subjective:: Feels well. Some upper abdominal pain at the incision site but no chest pain and no dysphasia. Swallowed a little bit of water this morning without difficulty. Reason For Visit: R10.12 LEFT UPPER QUADRANT PAIN Physical Exam Vital Signs: Temp Pulse Resp BP Pulse Ox 97.7 F 100 19 151/83 H 98 09/27/19 08:35 09/27/19 08:35 09/27/19 08:35 09/27/19 08:35 09/27/19 08:35 Intake & Output 09/26/19 09/27/19 09/28/19 06:59 06:59 06:59 Intake Total 2832 Output Total 502 Balance 2330 Weight 94.8 kg General appearance: PRESENT: no acute distress, cooperative Respiratory exam: PRESENT: clear to auscultation musa Cardiovascular exam: PRESENT: RRR GI/Abdominal exam: PRESENT: other - Soft, mild tenderness at the upper abdominal wound. Dressings intact. Results Laboratory Results: 09/24/19 09:24 09/24/19 09:24 Impressions: Chest X-Ray 09/26/19 00:00 IMPRESSION: 1. No acute pulmonary findings. Upper GI Series 09/26/19 15:42 IMPRESSION: NO EVIDENCE FOR CONTRAST EXTRAVASATION IN THE ESOPHAGUS OR STOMACH. SMALL HIATAL HERNIA. OTHERWISE UNREMARKABLE STUDY. Assessment & Plan - Diagnosis (1) Retained foreign body Is this a current diagnosis for this admission?: Yes Plan: Status post removal endoscopically with possible esophageal injury. No evidence of a significant injury by swallow studies. Chest exam is clear and she has no dysphasia. Will observe the patient in the hospital today on clear liquids. Provided she continues to do well we will plan to discharge patient home in the morning. - Time Time Spent with patient: Less than 15 minutes
[2019-09-27] MEDS: HYDROMORPHONE HCL INJ/PF 2 MG/ML AMPULE IV PRN ×2 (18:27→21:49)
[2019-09-28] MEDS: HYDROMORPHONE HCL INJ/PF 2 MG/ML AMPULE IV PRN (06:53)
[2019-09-28] MEDS: KETOROLAC TROMETHAMINE 10 MG TABLET PO PRN (06:53)
--- NOTE | 2019-09-28 09:25 | PDOC DISCHARGE SUMMARY ---
General - Admit/Disc Date/PCP Admission Date/Primary Care Provider: 09/26/19 16:34 RONNI HODGES Discharge Date: 09/28/19 - Discharge Diagnosis Final Diagnosis: retained foreign body abdomen, - Assessment Summary: Patient was admitted on 09/26/19 planes of abdominal pain and abscess on her left abdominal wall. Was noted to have a previous history of a PEG tube and for pancreatitis. The patient had been previously removed but she continues to have abscesses in her left abdominal wall. She was taken to surgery where a foreign body was removed from the previous PEG tube site. She also an upper endoscopy. There was a question of esophageal tear after doing the upper endoscopy and therefore a follow-up upper GI was obtained which showed no evidence of esophageal leak. She was started on clear liquid diet today she is tolerating a diet full liquids having no significant abdominal pain her wound on her left abdominal wall is packed open and granulating well she will be discharged home now with instructions to take tolerate a full liquid diet slowly advanced to a soft diet on her own. She will follow-up in surgery clinic in 7 to 10 days after discharge. She is also been instructed to how to pack her wound and she has experience with this from previous abscesses of the left abdominal PEG tube site. She will be given Percocet for pain 5-325 mg 1 p.o. q. 6 as needed pain - Additional Information Resuscitation Status: Full Code Discharge Diet: As Tolerated, Full Liquids Discharge Activity: Activity As Tolerated - Patient is a follow-up appointment surgery clinic in 7 to 10 days after discharge she also needs instruction on wound packing and given a supply of 2 x 2 gauzes and sterile saline and a packing disposable tweezers. Referrals: LUCÍA GUTIERREZ MD [ACTIVE STAFF] - 10/12/19 2:15 pm Home Medications: No Home Medications 09/19/19 History of Present Illiness History of Present Illness: LEAH BRAUN is a 34 year old female Physical Exam Vital Signs: Temp Pulse Resp BP Pulse Ox 97.5 F 88 18 107/55 L 100 09/28/19 08:18 09/28/19 08:18 09/28/19 08:18 09/28/19 08:18 09/28/19 08:18 Intake & Output 09/27/19 09/28/19 09/29/19 06:59 06:59 06:59 Intake Total 3832 1983 Output Total 502 Balance 3330 1983 Weight 94.8 kg 99.8 kg Results Laboratory Results: WBC 12.5 10^3/uL (4.0-10.5) H 09/24/19 09:24 RBC 4.23 10^6/uL (3.72-5.28) 09/24/19 09:24 Hgb 10.4 g/dL (12.0-15.5) L 09/24/19 09:24 Hct 32.9 % (36.0-47.0) L 09/24/19 09:24 MCV 78 fl (80-97) L 09/24/19 09:24 MCH 24.5 pg (27.0-33.4) L 09/24/19 09:24 MCHC 31.5 g/dL (32.0-36.0) L 09/24/19 09:24 RDW 15.4 % (11.5-14.0) H 09/24/19 09:24 Plt Count 387 10^3/uL (150-450) 09/24/19 09:24 Sodium 137.6 mmol/L (137-145) 09/24/19 09:24 Potassium 4.4 mmol/L (3.6-5.0) 09/24/19 09:24 Chloride 100 mmol/L (98-107) 09/24/19 09:24 Carbon Dioxide 29 mmol/L (22-30) 09/24/19 09:24 Anion Gap 9 (5-19) 09/24/19 09:24 BUN 11 mg/dL (7-20) 09/24/19 09:24 Creatinine 0.55 mg/dL (0.52-1.25) 09/24/19 09:24 Est GFR ( Amer) > 60 (>60) 09/24/19 09:24 Est GFR (MDRD) Non-Af > 60 (>60) 09/24/19 09:24 Glucose 260 mg/dL (75-110) H 09/24/19 09:24 POC Glucose 141 mg/dL (70-110) H 09/26/19 17:14 Calcium 9.7 mg/dL (8.4-10.2) 09/24/19 09:24 Urine HCG, Qual NEGATIVE (NEGATIVE) 09/26/19 10:45 Impressions: Chest X-Ray 09/26/19 00:00 IMPRESSION: 1. No acute pulmonary findings. Upper GI Series 09/26/19 15:42 IMPRESSION: NO EVIDENCE FOR CONTRAST EXTRAVASATION IN THE ESOPHAGUS OR STOMACH. SMALL HIATAL HERNIA. OTHERWISE UNREMARKABLE STUDY.
[2019-09-28 10:37] VITALS: BP 151/83
== END 2019-09-28 10:48 | disposition home or self-care (01) ==
LOC: OROUT 10:30 → 4N 16:34
PROVIDERS: ADMIT Surgery; ATTEND Surgery
DX: L02.211 Cutaneous abscess of abdominal wall (principal); T81.598A Other complications of foreign body accidentally left in body following other procedure, initial encounter; Y82.9 Unspecified medical devices associated with adverse incidents; I97.191 Other postprocedural cardiac functional disturbances following other surgery; Y83.8 Other surgical procedures as the cause of abnormal reaction of the patient, or of later complication, without mention of misadventure at the time of the procedure; K91.71 Accidental puncture and laceration of a digestive system organ or structure during a digestive system procedure; G89.18 Other acute postprocedural pain; R10.12 Left upper quadrant pain; F10.11 Alcohol abuse, in remission; K86.3 Pseudocyst of pancreas; Z87.19 Personal history of other diseases of the digestive system; Z90.49 Acquired absence of other specified parts of digestive tract; Z01.818 Encounter for other preprocedural examination; Z83.3 Family history of diabetes mellitus
CPT/HCPCS: 11042; 43239; 43247; 36415; 82962; 85027; 81025; 80048; 88300 ×2; 74247; 71045; 00731; G0378 ×3; J2250; J0690; J3010; J3490 ×4; J1885; J2270; J1170 ×3; J2405; J7060; J7120; J2704; J0131; 731